=== PATIENT | female | born 1980 | race Caucasian/White ===

== ENCOUNTER → 2021-02-20 15:56 | Outpatient (CLI) | payer OTHER, SELFPAY ==
--- NOTE | ~2021-02-20 | XR_ITS ---
EXAMINATION: XR ankle RT min 3V DATE: 02/20/2021 16:12 INDICATION: Right ankle pain TECHNIQUE: Anteroposterior, oblique, mortise, and lateral views of the right ankle were obtained. COMPARISON: None. FINDINGS: Alignment is normal. No fracture. Joint spaces are well maintained. No ankle joint effusion. The so ft tissues are unremarkable. IMPRESSION: 1. Negative right ankle radiographs. Reviewed, dictated and finalized at location B. CTOR TRADE
== END ==
PROVIDERS: PCP Family Medicine; Visit Provider Family Medicine
DX: M25.579 Pain in unspecified ankle and joints of unspecified foot (principal)
CPT/HCPCS: 73610

== ENCOUNTER → 2021-05-11 16:30 | Outpatient (CLI) | payer OTHER, SELFPAY ==
--- NOTE | ~2021-05-11 | MR_ITS ---
EXAMINATION: MR ankle RT wo con DATE: 05/11/2021 17:15 INDICATION: Chronic pain and clicking at the right ankle. TECHNIQUE: Magnetic resonance imaging (MRI) of the right ankle was performed without intravenous cont rast. Sequences included sagittal, coronal, and axial proton-density weighted fast spin echo without and with fat saturation. COMPARISON: None. FINDINGS: Medial ankle ligaments: Deep and superficial deltoid ligaments as well as the spring ligament are normal. Lateral ankle ligaments: The anterior and posterior inferior tibiofibular ligaments are normal. The anterior talofibular, calc aneofibular and posterior talofibular ligaments are normal. Tendons: Achilles tendon is normal. The peroneus longus and brevis tendons are normal. The tibialis anterior a nd extensor hallucis longus and extensor digitorum longus tendons are normal. The tibialis posterior, flexor digitorum longus and flexor hallucis longus tendons are normal. Plantar fascia: Plantar aponeurosis is normal. Bones/other: Bone alignment is normal. Normal marrow signal throughout with no reactive edema, fracture or patholo gic marrow replacing process. Mild osteoarthritis at the right ankle with nonuniform mild partial-thi ckness cartilage loss with smooth chondral surface along the anterior to central aspect of the talar dome. Additional mild talonavicular osteoarthritis with partial thickness cartilage loss with smooth chondral surface at the inferior aspect of the joint space. Fluid: Physiologic amount fluid in the joint space. No tenosynovitis, bursitis or other abnormal fluid colle ctions. IMPRESSION: 1. Mild tibiotalar and talonavicular osteoarthritis. Reviewed, dictated and finalized at location A.
== END ==
PROVIDERS: Visit Provider Orthopaedic Surgery
DX: M19.071 Primary osteoarthritis, right ankle and foot (principal)
CPT/HCPCS: 73721

== ENCOUNTER → 2021-05-29 16:56 | Outpatient (CLI) | payer OTHER, SELFPAY ==
--- NOTE | ~2021-05-29 | XR_ITS ---
EXAM: XR sacrum coccyx min 2V HISTORY: Pain COMPARISON: CT abdomen and pelvis 03/28/2011. FINDINGS: No acute fracture or dislocation. Lateral deviation of the distal coccygeal elements, stab le since the prior. No significant degenerative changes. No lytic or blastic lesions. IMPRESSION: No acute osseous abnormality detected in the sacrum or coccyx. Reviewed, dictated and finalized at location K.
== END ==
PROVIDERS: PCP Family Medicine; Visit Provider Family Medicine
DX: M53.3 Sacrococcygeal disorders, not elsewhere classified (principal)
CPT/HCPCS: 72220

== ENCOUNTER → 2022-11-11 13:37 | Outpatient (CLI) | payer OTHER, SELFPAY ==
--- NOTE | ~2022-11-11 | MM_ITS ---
EXAMINATION: MM screening keshia BI w stella HISTORY: Screening mammogram TECHNIQUE: Craniocaudal and mediolateral oblique 3-D tomosynthesis images were obtained and synthetic 2-D images were generated. CAD analysis was submitted and interpreted. COMPARISON: No prior mammogram is available for comparison at this institution. BREAST PARENCHYMAL COMPOSITION: There are scattered areas of fibroglandular density. FINDINGS: Benign-appearing intramammary lymph node, upper outer quadrant of right breast. There is no evidence of suspicious mass, calcification, or architectural distortion to suggest malignancy in eit her breast. There has been no suspicious interval change. IMPRESSION: 1. No mammographic evidence of malignancy. 2. Recommend routine screening mammography in one year. BI-RADS Category 2: Benign finding(s). Reviewed, dictated and finalized at location A.
== END ==
PROVIDERS: PCP Physician Assistant; Visit Provider Physician Assistant
DX: Z12.31 Encounter for screening mammogram for malignant neoplasm of breast (principal)
CPT/HCPCS: 77063; 77067

== ENCOUNTER 2022-11-17 18:29 | Emergency (ER) | payer OTHER, SELFPAY ==
[2022-11-17 18:44] VITALS: BP 154/83; PULSE 68; RESP 18; TEMP 36.9; O2SAT 100
--- NOTE | 2022-11-17 19:02 | ED.NAVMDI ---
HPI - Nausea/Vomiting/Diarrhea General Chief complaint: Nausea/Vomiting/Diarrhea Stated complaint: diarrhea Time Seen by Provider: 11/17/22 18:45 Source: patient and RN notes reviewed Mode of arrival: ambulatory Limitations: no limitations History of Present Illness HPI Narrative: Patient presents today complaining of a 10 day history of diarrhea. Associated symptoms include intermittent dizziness and abdominal cramping. Prior to onset of diarrhea, patient had a 2 day history of nasal congestion and cough, which has since resolved. Patient states that since her diarrhea began she has lost 17 lb, likely due to only eating a small amount of bread 3 times per day when she takes her medications, and drinking Pedialyte, because if she eats more, this causes more diarrhea. At this time, while only eating the small amounts of bread, she only has 1 episode of diarrhea per day. No blood or mucus in the stool. Denies nausea or vomiting. Denies abdominal pain. Denies fever. States she is urinating at least 3 times per day. Patient states she has not tried any [id number] medication for her diarrhea as she has had adverse reactions to anti diarrheal medications in the past. Related Data Home Medications Medication Instructions Recorded Confirmed prednisone 50 mg tablet 50 mg PO DAILY 08/16/22 08/16/22 Allergies Allergy/AdvReac Type Severity Reaction Status Date / Time RENZO Inhibitors Allergy Severe unknown Verified 08/16/22 10:45 allantoin [From Orajel] Allergy Severe Rash Verified 08/16/22 10:45 benzalkonium chloride Allergy Severe Rash Verified 08/16/22 10:45 [From Orajel] benzocaine [From Orajel] Allergy Severe Rash Verified 08/16/22 10:45 carbamide peroxide Allergy Severe Rash Verified 08/16/22 10:45 [From Orajel] zinc chloride [From Orajel] Allergy Severe Rash Verified 08/16/22 10:45 azithromycin Allergy Mild unknown Verified 08/16/22 10:45 losartan Allergy Mild Unknown Verified 08/16/22 10:45 Penicillins Allergy Mild unkown Verified 08/16/22 10:45 povidone Allergy Mild gi upset Verified 08/16/22 10:45 tetracycline Allergy Mild unknown Verified 08/16/22 10:45 adhesive tape Allergy Unknown unknown Verified 08/16/22 10:45 ciprofloxacin Allergy Unknown unknown Verified 08/16/22 10:45 guaifenesin Allergy swelling Verified 08/16/22 10:45 and difficulty breathing cefamandole [From Mandol] AdvReac Severe Unknown Verified 08/16/22 10:45 clonidine AdvReac Severe Unknown Verified 08/16/22 10:45 lisinopril AdvReac Severe Unknown Verified 08/16/22 10:45 metoprolol [From Toprol XL] AdvReac Severe unknown Verified 08/16/22 10:45 nebivolol [From Bystolic] AdvReac Severe Unknown Verified 08/16/22 10:45 NSAIDS (Non-Steroidal AdvReac Severe Unknown Verified 08/16/22 10:45 Anti-Inflamma olmesartan [From Benicar] AdvReac Severe Unknown Verified 08/16/22 10:45 povidone-iodine AdvReac Severe Unknown Verified 08/16/22 10:45 pseudoephedrine AdvReac Severe Unknown Verified 08/16/22 10:45 [From Sudafed] triamterene AdvReac Severe Unknown Verified 08/16/22 10:45 mannitol AdvReac Mild gi upset Verified 08/16/22 10:45 sodium lauryl sulfate AdvReac Mild gi bleeding Verified 08/16/22 10:45 ERYTHROMYCINS Allergy Mild unknown Uncoded 08/16/22 10:45 CEFAZOLIN SODIUM Allergy Unknown unknown Uncoded 08/16/22 10:45 CIPROFLOXACIN HCL Allergy Unknown unknown Uncoded 08/16/22 10:45 MINOCYCLINE HCL Allergy Unknown unknown Uncoded 08/16/22 10:45 SKIN CLEANSER COMBINATION Allergy Unknown unknown Uncoded 08/16/22 10:45 NO.4 ONDANSETRON HCL AdvReac Unknown unknown Uncoded 08/16/22 10:45 Review of Systems Review of Systems: CONSTITUTIONAL: Denies body aches, fever, chills, or sweats.+ weight loss EYES: Denies visual changes, redness, or discharge. ENT: Denies rhinorrhea, congestion, sore throat, or otalgia. CARDIOVASCULAR: Denies chest pain, palpitations, or edema. RESPIRATORY: Denies cough or dyspnea. GASTROINTESTINAL: Denies abdomi
== END 2022-11-17 19:05 | disposition home or self-care (01) ==
PROVIDERS: Emergency Provider Nurse Practitioner; PCP Physician Assistant
DX: R19.7 Diarrhea, unspecified (principal); I10 Essential (primary) hypertension; E03.9 Hypothyroidism, unspecified
CPT/HCPCS: 99211; G0463

== ENCOUNTER 2022-12-17 07:15 | Emergency (ER) | payer OTHER, SELFPAY ==
[2022-12-17] VITALS (7 sets, daily range): BP systolic 140–177; BP diastolic 87–112; PULSE 60–76; RESP 16–18; TEMP 36.6–36.8; O2SAT 98–100
--- NOTE | ~2022-12-17 | CT_ITS ---
EXAMINATION: CT abdomen pelvis wo con DATE: 12/17/2022 09:43 INDICATION: Left-sided abdominal pain TECHNIQUE: Computed tomography (CT) of the abdomen and pelvis was performed without intravenous contr ast. Automated exposure control and iterative reconstruction technique were employed. The dose-length product was 930.34 mGy-cm. COMPARISON: 03/28/2011 FINDINGS: Calcified nodules in the bilateral lower lobes along with splenic calcification and a calcified gastr ohepatic lymph node, all consistent with old granulomatous disease. Heart size is normal. No pericard ial or pleural effusion. Diffuse hepatic steatosis. Gallbladder, pancreas, bilateral adrenal glands a nd left kidney are normal. 2 mm nonobstructing stone in the right kidney. No ureteral stones or hydro nephrosis. There are several diverticula along the descending and sigmoid colon. There is some wall t hickening of the colon centered along the descending colon where there is also some mild pericolonic stranding. This does not appear to be isolated nondisplaced specific diverticulum and would favor a m ild colitis over diverticulitis. Small bowel and appendix are normal. Bladder, anteverted uterus and bilateral adnexa are unremarkable. Trace amount of likely physiologic free fluid in the cul-de-sac. N o free intraperitoneal gas. No pathologically enlarged abdominal or pelvic lymphadenopathy. Minimal t o mild scattered degenerative skeletal changes. Likely benign 7 mm centrally lucent lesion in the lef t innominate bone with well-defined peripheral sclerotic rim which is without interval change since 2 012. IMPRESSION: 1. Mild colonic wall thickening and minimal surrounding inflammatory stranding along the descending c olon which appears more diffuse and would be expected for diverticulitis and favor a colitis which co uld be either infectious, inflammatory or ischemic in etiology. 2. 2 mm nonobstructing right renal stone. Reviewed, dictated and finalized at location A. IMPRESSION: 1. Mild colonic wall thickening and minimal surrounding inflammatory stranding along the descending colon which appears more diffuse and would be expected for diverticulitis and favor a colitis which could be either infectious, inflammat ory or ischemic in etiology. 2. 2 mm nonobstructing right renal stone.
[2022-12-17 07:38] LABS: Basophils Absolute Auto 0.1 K/mm3 (0.0-0.1); Basophils Percent Auto 0.5 % (0.2-1.2); Eosinophils Absolute Auto 0.3 K/mm3 (0-0.3); Eosinophils Percent Auto 2.9 % (0-4.4); Hematocrit 43.7 % (37.0-47.0); Hemoglobin 13.8 g/dL (12.0-15.0); Immature Granulocyte Absolute 0.04 K/mm3 (0.00-0.031); Immature Granulocyte Percent A 0.4 % (0-0.5); Lymphocytes Absolute Auto 1.63 K/mm3 (0.9-3.2); Lymphocytes Percent Auto 17.3 % (18.3-44.2); Mean Corpuscular HGB Conc 31.6 g/dl (32-36); Mean Corpuscular Hemoglobin 27.7 pg (26-34); Mean Corpuscular Volume 87.8 fl (80-100); Mean Platelet Volume 10.7 fl (7.4-10.4); Monocytes Absolute Auto 0.5 K/mm3 (0.1-0.6); Monocytes Percent Auto 5.7 % (2.6-8.5); Neutrophils Absolute Auto 6.9 K/mm3 (1.3-6.7); Neutrophils Percent Auto 73.2 % (45.5-73.1); Platelet Count Result 311 k/mm3 (150-375); Red Blood Count 4.98 M/mm3 (4.2-5.4); Red Cell Distribution Width 13.4 % (11.5-14.5); White Blood Count 9.4 K/mm3 (4.5-10.0)
[2022-12-17 07:49] LABS: Alanine Aminotransferase 29 U/L (6-35); Albumin Level 4.3 g/dL (3.5-5.1); Alkaline Phosphatase 84 U/L (38-126); Anion Gap 8 mmol/L (8-16); Aspartate Amino Transferase 31 U/L (14-36); Bilirubin,Total 0.7 mg/dL (0.2-1.3); Blood Urea Nitrogen 8 mg/dL (7-17); Calcium 8.8 mg/dL (8.4-10.2); Carbon Dioxide 25 mmol/L (22-30); Chloride 104 mmol/L (98-107); Estimated CRCL calculation 126 ml/min; Estimated Glomerular Filt Rate > 60; Glucose 116 mg/dL (65-110); Lipase 48 U/L (23-300); Potassium 3.7 mmol/L (3.4-5.0); Sodium 137 mmol/L (137-145)
[2022-12-17 09:02] LABS: Appearance Urine Cloudy (Clear); Bacteria Urine None Seen /hpf; Bilirubin Urine Negative (Negative); Blood Urine Negative (Negative); Color Urine Yellow (Yellow); Glucose Urine UA Negative (Negative); Ketones Urine Negative (Negative); Leukocyte Esterase Ur Negative LEU/UL (Negative); Mucus Urine Present /lpf; Nitrate Urine Negative (Negative); Non Pathogenic Casts 0-2; Protein Urine Negative (Negative); Specific Grav Ur 1.021 (1.001-1.035); Squamous Epithelial Cell Urine Few /hpf (Few); Urobilinogen Urine 0.2 mg/dL (<2.0); WBC Urine 0-5 /hpf; pH Urine 5.5 (5.0-9.0)
[2022-12-17 09:04] LABS: Add Urine Microscopic? YES
--- NOTE | 2022-12-17 11:18 | PC.NURSE ---
No change waiting on dispo & POC
--- NOTE | 2022-12-17 12:17 | ED.ABDPAIN ---
HPI - Abdominal Pain General Chief Complaint: Abdominal Pain Stated Complaint: abd pain, bloody stools Time Seen by Provider: 12/17/22 08:08 History of Present Illness HPI narrative: Patient is a 42-year-old female who presents ER with abdominal cramping and bloody stools. Patient reports questionable history of inflammatory bowel disease. She had 1 loose stool with blood mixed in with it this morning. No fevers or chills or sweats. No known sick contacts. No recent antibiotic usage. She is on no blood thinners. Patient does have images of the stool which does show faint pink mixed with the stool. It is not large-volume blood. Related Data Home Medications Medication Instructions Recorded Confirmed prednisone 50 mg tablet 50 mg PO DAILY 08/16/22 11/18/22 Allergies Allergy/AdvReac Type Severity Reaction Status Date / Time RENZO Inhibitors Allergy Severe unknown Verified 11/18/22 16:40 allantoin [From Orajel] Allergy Severe Rash Verified 11/18/22 16:40 benzalkonium chloride Allergy Severe Rash Verified 11/18/22 16:40 [From Orajel] benzocaine [From Orajel] Allergy Severe Rash Verified 11/18/22 16:40 carbamide peroxide Allergy Severe Rash Verified 11/18/22 16:40 [From Orajel] zinc chloride [From Orajel] Allergy Severe Rash Verified 11/18/22 16:40 azithromycin Allergy Mild unknown Verified 11/18/22 16:40 losartan Allergy Mild Unknown Verified 11/18/22 16:40 Penicillins Allergy Mild unkown Verified 11/18/22 16:40 povidone Allergy Mild gi upset Verified 11/18/22 16:40 tetracycline Allergy Mild unknown Verified 11/18/22 16:40 adhesive tape Allergy Unknown unknown Verified 11/18/22 16:40 ciprofloxacin Allergy Unknown unknown Verified 11/18/22 16:40 guaifenesin Allergy swelling Verified 11/18/22 16:40 and difficulty breathing cefamandole [From Mandol] AdvReac Severe Unknown Verified 11/18/22 16:40 clonidine AdvReac Severe Unknown Verified 11/18/22 16:40 lisinopril AdvReac Severe Unknown Verified 11/18/22 16:40 metoprolol [From Toprol XL] AdvReac Severe unknown Verified 11/18/22 16:40 nebivolol [From Bystolic] AdvReac Severe Unknown Verified 11/18/22 16:40 NSAIDS (Non-Steroidal AdvReac Severe Unknown Verified 11/18/22 16:40 Anti-Inflamma olmesartan [From Benicar] AdvReac Severe Unknown Verified 11/18/22 16:40 povidone-iodine AdvReac Severe Unknown Verified 11/18/22 16:40 pseudoephedrine AdvReac Severe Unknown Verified 11/18/22 16:40 [From Sudafed] triamterene AdvReac Severe Unknown Verified 11/18/22 16:40 mannitol AdvReac Mild gi upset Verified 11/18/22 16:40 sodium lauryl sulfate AdvReac Mild gi bleeding Verified 11/18/22 16:40 ERYTHROMYCINS Allergy Mild unknown Uncoded 11/18/22 16:40 CEFAZOLIN SODIUM Allergy Unknown unknown Uncoded 11/18/22 16:40 CIPROFLOXACIN HCL Allergy Unknown unknown Uncoded 11/18/22 16:40 MINOCYCLINE HCL Allergy Unknown unknown Uncoded 11/18/22 16:40 SKIN CLEANSER COMBINATION Allergy Unknown unknown Uncoded 11/18/22 16:40 NO.4 ONDANSETRON HCL AdvReac Unknown unknown Uncoded 11/18/22 16:40 Review of Systems Review of Systems: All systems reviewed & are unremarkable except as noted in HPI and below Constitutional: Constitutional: Denies chills, Denies fatigue and Denies fever(s) ENT: Denies nasal congestion and Denies sore throat Cardiovascular: Cardiovascular: Denies chest pain, Denies rapid heart rate and Denies radiating jaw, neck or arm pain Respiratory: Respiratory: Denies cough and Denies dyspnea Gastrointestinal: Gastrointestinal: Reports abdominal pain, Reports diarrhea, Denies nausea and Denies vomiting Comments: Blood in stool Genitourinary: Genitourinary: Denies nocturia, Denies dysuria and Denies flank pain PMFSH Past Medical History Medical History Abdominal migraine Abdominal pain Ankle joint clicking Arthritis Asthma Asthma Coccyodynia Coughing Crohn's disease, unspecified, witho
== END 2022-12-17 12:42 | disposition home or self-care (01) ==
PROVIDERS: Emergency Provider Emergency Medicine; PCP Physician Assistant
DX: K52.9 Noninfective gastroenteritis and colitis, unspecified (principal); J45.909 Unspecified asthma, uncomplicated; I10 Essential (primary) hypertension; K50.90 Crohn's disease, unspecified, without complications; E03.9 Hypothyroidism, unspecified; E66.9 Obesity, unspecified; M19.90 Unspecified osteoarthritis, unspecified site; Z68.35 Body mass index [BMI] 35.0-35.9, adult; N20.0 Calculus of kidney
CPT/HCPCS: 36415; 74176; 80053; 81001; 81025; 83690; 85025; 99284

== ENCOUNTER 2023-02-11 15:42 | Emergency (ER) | payer OTHER, SELFPAY ==
--- NOTE | ~2023-02-11 | XR_ITS ---
EXAMINATION: XR chest 2V 02/11/2023 16:13 INDICATION: Cough. Covid infection. PROCEDURE: 2 view chest COMPARISON: 02/26/2010 FINDINGS: The lungs are clear. The cardiomediastinal silhouette is within normal limits. There are no pleural effusions. There is no pneumothorax suspected. IMPRESSION: 1: NO ACUTE CARDIOPULMONARY DISEASE. Reviewed, dictated and finalized at location L. E PACKING HEADER
[2023-02-11 15:55] VITALS: BP 125/83; PULSE 78; RESP 16; TEMP 36.4; O2SAT 100
--- NOTE | 2023-02-11 16:29 | ED.URI ---
HPI - URI/Sore Throat General Chief Complaint: Asthma Stated Complaint: +COVID home test 1week, chest hurts Time Seen by Provider: 02/11/23 16:29 Source: patient Mode of arrival: ambulatory Limitations: no limitations History of Present Illness HPI Narrative: 42-year-old female presents with complaint of cough, chest congestion for 1 week. Shortness of breath with exertion past 2 days. History of asthma. Does have a p.r.n. order for prednisone but has not started this medication. Took down some 3 days ago to treat cough but not since then. Reports allergy to Mucinex. Afebrile. Patient speaking in full sentences, no respiratory distress noted. Tested positive for COVID 1 week ago. All systems reviewed and negative except as noted above. Related Data Home Medications Medication Instructions Recorded Confirmed Advair Diskus 02/11/23 02/11/23 prednisone 50 mg tablet 50 mg PO DAILY 02/11/23 02/11/23 Allergies Allergy/AdvReac Type Severity Reaction Status Date / Time RENZO Inhibitors Allergy Severe unknown Verified 02/11/23 16:35 allantoin [From Orajel] Allergy Severe Rash Verified 02/11/23 16:35 benzalkonium chloride Allergy Severe Rash Verified 02/11/23 16:35 [From Orajel] benzocaine [From Orajel] Allergy Severe Rash Verified 02/11/23 16:35 carbamide peroxide Allergy Severe Rash Verified 02/11/23 16:35 [From Orajel] zinc chloride [From Orajel] Allergy Severe Rash Verified 02/11/23 16:35 azithromycin Allergy Mild unknown Verified 02/11/23 16:35 losartan Allergy Mild Unknown Verified 02/11/23 16:35 Penicillins Allergy Mild unkown Verified 02/11/23 16:35 povidone Allergy Mild gi upset Verified 02/11/23 16:35 tetracycline Allergy Mild unknown Verified 02/11/23 16:35 adhesive tape Allergy Unknown unknown Verified 02/11/23 16:35 ciprofloxacin Allergy Unknown unknown Verified 02/11/23 16:35 guaifenesin Allergy swelling Verified 02/11/23 16:35 and difficulty breathing cefamandole [From Mandol] AdvReac Severe Unknown Verified 02/11/23 16:35 clonidine AdvReac Severe Unknown Verified 02/11/23 16:35 lisinopril AdvReac Severe Unknown Verified 02/11/23 16:35 metoprolol [From Toprol XL] AdvReac Severe unknown Verified 02/11/23 16:35 nebivolol [From Bystolic] AdvReac Severe Unknown Verified 02/11/23 16:35 NSAIDS (Non-Steroidal AdvReac Severe Unknown Verified 02/11/23 16:35 Anti-Inflamma olmesartan [From Benicar] AdvReac Severe Unknown Verified 02/11/23 16:35 povidone-iodine AdvReac Severe Unknown Verified 02/11/23 16:35 pseudoephedrine AdvReac Severe Unknown Verified 02/11/23 16:35 [From Sudafed] triamterene AdvReac Severe Unknown Verified 02/11/23 16:35 mannitol AdvReac Mild gi upset Verified 02/11/23 16:35 sodium lauryl sulfate AdvReac Mild gi bleeding Verified 02/11/23 16:35 flu vaccine Allergy Intermediate Itching Uncoded 02/11/23 16:35 ERYTHROMYCINS Allergy Mild unknown Uncoded 02/11/23 16:35 CEFAZOLIN SODIUM Allergy Unknown unknown Uncoded 02/11/23 16:35 CIPROFLOXACIN HCL Allergy Unknown unknown Uncoded 02/11/23 16:35 MINOCYCLINE HCL Allergy Unknown unknown Uncoded 02/11/23 16:35 SKIN CLEANSER COMBINATION Allergy Unknown unknown Uncoded 02/11/23 16:35 NO.4 ONDANSETRON HCL AdvReac Unknown unknown Uncoded 02/11/23 16:35 Review of Systems Review of Systems: CONSTITUTIONAL: Denies fever, chills, or sweats. Reports fatigue. EYES: Denies visual changes, redness, or discharge. ENT: Reports rhinorrhea, congestion, sore throat. Denies otalgia. CARDIOVASCULAR: Denies chest pain, palpitations, or edema. RESPIRATORY: reports cough and dyspnea with exertion. GASTROINTESTINAL: Denies abdominal pain, nausea, vomiting, or diarrhea. GENITOURINARY: Denies dysuria or hematuria. SKIN: Denies rash or itching. MUSCULOSKELETAL: Denies back pain, joint pain, or myalgia. NEUROLOGIC: Denies headache, numbness, or weakness. PSYCHIATRIC: Denies anxiety or depression. All other systems reviewed are negative, exce
== END 2023-02-11 16:50 | disposition home or self-care (01) ==
PROVIDERS: Emergency Provider Nurse Practitioner Family; PCP Family Medicine
DX: U07.1 COVID-19 (principal); J45.909 Unspecified asthma, uncomplicated; I10 Essential (primary) hypertension; E03.9 Hypothyroidism, unspecified; K50.90 Crohn's disease, unspecified, without complications; E66.9 Obesity, unspecified; Z68.34 Body mass index [BMI] 34.0-34.9, adult
CPT/HCPCS: 71046; 99213; G0463

== ENCOUNTER → 2023-03-14 15:19 | Outpatient (CLI) | payer BC, SELFPAY ==
--- NOTE | ~2023-03-14 | XR_ITS ---
EXAMINATION: XR hip BI 2V w AP pelvis DATE: 03/14/2023 15:49 INDICATION: Right hip pain. TECHNIQUE: An anteroposterior view of the pelvis and 2 views of each hip were obtained. COMPARISON: None. FINDINGS: Bone alignment is normal. No fracture. There is mild osteoarthritis of the hips. IMPRESSION: 1. Mild osteoarthritis of the hips. Reviewed, dictated and finalized at location E. K RATING
--- NOTE | ~2023-03-14 | XR_ITS ---
EXAMINATION: XR knee RT min 4V DATE: 03/14/2023 15:49 INDICATION: Right knee pain. Right hip pain. TECHNIQUE: 4 views of right knee were obtained. COMPARISON: None. FINDINGS: Bone alignment is normal. No fracture. Joint spaces are normal. No knee joint effusion. IMPRESSION: 1. Normal right knee. Reviewed, dictated and finalized at location E. EN SEWER IMPRESSION: 1. Normal right knee.
--- NOTE | ~2023-03-14 | XR_ITS ---
XR knee LT min 4V 03/14/2023 15:49 Indication: Left knee pain Procedure: 4 views left knee Comparison: No prior studies for comparison. Findings: There is anatomic alignment. No fracture, subluxation or dislocation. No significant degene rative change. No joint effusion. Impression: 1: No significant bone or joint abnormality. Reviewed, dictated and finalized at location B. OMICS LECTURER Impression: 1: No significant bone or joint abnormality.
== END ==
PROVIDERS: PCP Family Medicine; Visit Provider Family Medicine
DX: M25.561 Pain in right knee (principal); M25.562 Pain in left knee; M25.661 Stiffness of right knee, not elsewhere classified; M25.662 Stiffness of left knee, not elsewhere classified; M16.0 Bilateral primary osteoarthritis of hip
CPT/HCPCS: 73521; 73564

== ENCOUNTER 2023-10-01 16:02 | Outpatient (CLI) | payer BC, SELFPAY ==
--- NOTE | ~2023-10-01 | MR_ITS ---
EXAMINATION: MR shoulder LT wo con DATE: 10/01/2023 16:45 INDICATION: Left shoulder stiffness. Generalized left shoulder pain and limited range of motion. TECHNIQUE: Magnetic resonance imaging (MRI) of the left shoulder was performed without intravenous co ntrast. Sequences included axial PD-weighted FS FSE, coronal oblique PD-weighted FS FSE, coronal obli que T2-weighted FS FSE, sagittal PD-weighted FS FSE, and sagittal T1-weighted SE. COMPARISON: None. FINDINGS: Coracoacromial arch: The acromion undersurface is flat in morphology (type I). The coracoacromial ligament is normal. Acro mioclavicular joint is normal. Rotator cuff: The supraspinatus, infraspinatus and teres minor tendons are normal. Moderate tendinopathy at the cep halad aspect of the distal subscapularis tendon. There is no discrete fluid signal intensity tear def ect appreciated however there is disorganized appearance to tissue along the cephalad margin of the l memo tuberosity, unclear whether this represents a small partial tear of the cephalad margin of the subscapularis tendon and/or partial tear of the lateral aspect of the biceps ashli sling. Normal rot ator cuff muscle bulk and signal. Biceps tendon, glenoid labrum and glenohumeral cartilage: Long head of the biceps tendon is normal. Glenoid labrum is normal. Glenohumeral cartilage is normal. Fluid: Physiologic amount of fluid in the glenohumeral joint and biceps tendon sheath. No loose osteochondr al bodies. No abnormal fluid in the subacromial/subdeltoid bursa to suggest bursitis. Bones: Normal marrow signal with no edema, fracture or abnormal marrow replacing process. IMPRESSION: 1. Moderate tendinopathy along the cephalad half of the subscapularis tendon with partial tear of the cephalad margin of the tendon and/or lateral aspects the biceps ashli sling. Reviewed, dictated and finalized at location A. IMPRESSION: 1. Moderate tendinopathy along the cephalad half of the subscapularis tendon wi th partial tear of the cephalad margin of the tendon and/or lateral aspects the biceps ashli sling.
== END 2023-10-01 16:03 ==
PROVIDERS: PCP Family Medicine; Visit Provider Family Medicine
DX: M25.512 Pain in left shoulder (principal); M25.612 Stiffness of left shoulder, not elsewhere classified
CPT/HCPCS: 73221

== ENCOUNTER 2023-10-30 16:48 | Outpatient (CLI) | payer BC, SELFPAY ==
--- NOTE | ~2023-10-30 | XR_ITS ---
Left Shoulder Technique: AP and scapular Y views were obtained. Clinical History: Pain Findings: No fracture or dislocation is seen. Osseous alignment is anatomic. The glenohumeral and acr omioclavicular joint spaces are preserved. Soft tissues are unremarkable. Impression: Unremarkable left shoulder radiographs. Reviewed, dictated and finalized at [facility]. Impression: Unremarkable left shoulder radiographs.
== END 2023-10-30 16:49 | disposition home or self-care (01) ==
PROVIDERS: PCP Family Medicine; Visit Provider Orthopaedic Surgery
DX: M25.512 Pain in left shoulder (principal)
CPT/HCPCS: 73030

== ENCOUNTER 2023-11-17 16:54 | Outpatient (CLI) | payer BC, SELFPAY ==
--- NOTE | ~2023-11-17 | XR_ITS ---
Lumbosacral Spine: AP and lateral views Clinical History: Pain Findings: The normal lordotic curve is maintained. The vertebral bodies and posterior elements are i ntact. There is mild degenerative narrowing at L2-L3. Mild facet joint degenerative changes are prese nt. The sacroiliac joints are normally outlined. Impression: Mild degenerative spondylosis. Reviewed, dictated and finalized at [facility]. Impression: Mild degenerative spondylosis.
--- NOTE | ~2023-11-17 | XR_ITS ---
XR sacroiliac joints min 3V Ordering provider: Wally Santillan History: . MULTIPLE JOINT PAIN . Comparison: None. FINDINGS: BONES: No acute fracture or dislocation. JOINTS: The bilateral sacroiliac joint spaces appear well maintained. No bony fusion of the sacroilia c joints or bony erosions. SOFT TISSUES: Unremarkable. IMPRESSION: NO ACUTE OSSEOUS ABNORMALITY. NORMAL SACROILIAC JOINTS. Reviewed, dictated and finalized at location A.
== END 2023-11-17 16:55 | disposition home or self-care (01) ==
PROVIDERS: PCP Family Medicine
DX: R53.81 Other malaise (principal); M47.896 Other spondylosis, lumbar region
CPT/HCPCS: 72100; 72202

== ENCOUNTER 2024-01-30 14:01 | Outpatient (CLI) | payer BC, SELFPAY ==
--- NOTE | ~2024-01-30 | US_ITS ---
EXAMINATION: US thyroid DATE: 01/30/2024 14:21 INDICATION: Thyroid nodule. Endocrine disorder. TECHNIQUE: Multiple ultrasound images of the thyroid were obtained. COMPARISON: Ultrasound 09/22/2013 FINDINGS: The right thyroid lobe measures 4.3 x 1.9 x 1.9 cm. The left thyroid lobe measures 4.7 x 1.6 x 1.7 c m. In the right thyroid lobe, there is a 15 mm almost entirely cystic nodule (TI-RADS TR1). In the r ight thyroid lobe, there is an 11 mm solid, isoechoic, wider than tall nodule with ill-defined margin without echogenic foci (TR3). In the left thyroid lobe, there is a 10 mm mixed cystic and solid, iso echoic, wider than tall nodule with ill-defined margin without echogenic foci (TR2). In the left thyr oid lobe, there is a 9 mm coarse calcification. IMPRESSION: 1. Small thyroid nodules, likely not clinically significant. No follow-up is needed. Reviewed, dictated and finalized at location A. ELING REPAIR ACCOUNTANT IMPRESSION: 1. Small thyroid nodules, likely not clinically significant. No follow-up is ne eded.
== END 2024-01-30 14:02 | disposition home or self-care (01) ==
PROVIDERS: PCP Family Medicine; Visit Provider Family Medicine
DX: E04.2 Nontoxic multinodular goiter (principal)
CPT/HCPCS: 76536

== ENCOUNTER 2024-10-19 15:29 | Outpatient (CLI) | payer BC, SELFPAY ==
--- OUTSIDE RECORDS SUMMARY | 2008-12-12 05:45 | XMS_ITS | Continuity of Care Document ---
Author Organization [facility] Address [address] [place] [address] [facility] [address] [place] [address] Phone Care Team Providers Care Manager Epic Name Role Phone Anjum Lam Unavailable Unavailable Procedures Procedure Date Office/outpatient Visit, [facility] Advance Directives Directive Yes / No Effective Date File Name No Information Encounters Encounter Description Practice Location Reason(s) For Visit Diagnoses Date Provider Providers Copied on Encounter Office/outpat ient Visit, [facility], [address] [place] [address] [address], [place], [place], [id number], [place] tel:[phone] [facility] No Information 6-200 9 Kimmili Anjum. [address] [facility] [address], [place], [address], [place]. tel:[phone] Family History Family Member Type Diagnosis Age At Onset No Information Payers Payer name Insurance type Covered republican ID Authoriza tion(s) No Information Social History [...]
--- OUTSIDE RECORDS SUMMARY | 2024-10-19 15:31 | XMS_ITS | Encounter Summary ---
Author Organization [facility] Address [address] [place] [address] Phone Care Team Providers Care Assistant Curator Name Role Phone Marizol Castelan MD Primary Care Provider [phone] Tej Woodson Primary Care Provider + Tania Carroll DO Primary Care Provider [phone] Encounter Details Date Type Department Care Team (Late st Contact Info) Description 02/20/2021 Orders Only [facility] Scanning, Provider Social History Tobacco Use Types Packs/Day Years Used Date Smoking Tobacco: Never Smokeless Tobacco: Never Comments Unknown Sex and Gender Information Value Date Recorded Sex Assigned at Not on file Legal Sex Female 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 Gender Identity Not on file Sexual Orientation Not on file documented as of this encounter Plan of Treatment Not on file documented as of this encounter Procedures Procedure Name Priority Date/Time Associated Diagnosis Comments SCAN - RADIOLOGY/IMAGING 02/20/2021 documented in this encounter Results * SCAN - RADIOLOGY/IMAGING (02/20/2021) Anatomical Region Laterality Modality Other us Provider Scanning Final Result documented in this encounter Visit Diagnoses Not on filedocumented in this encounter Care Teams Assistant Curator Relationship Specialty Start Date End Date Marizol Castelan MD [address] [place] [address] PCP - General 12/11/16 09/09/22 Tej Woodson PA [address] [place] [address] PCP - General Physician Retail Loan Officer 09/10/22 03/16/23 Tania Carroll DO [address] [place] [address] [address] [place] [address] PCP - General Family Medicine 03/17/23 documented as of this encounter
--- OUTSIDE RECORDS SUMMARY | 2024-10-19 15:31 | XMS_ITS | Encounter Summary ---
Author Organization [facility] Address [address] [place] [address] Phone Care Team Providers Care Personnel Coordinator Name Role Phone Marizol Castelan MD Primary Care Provider [phone] Tej Woodson Primary Care Provider + Tania Carroll DO Primary Care Provider [phone]- [phone] Encounter Details Date Type Department Care Team (Late st Contact Info) Description 05/11/2021 Orders Only [facility] Scanning, Provider Social History Tobacco Use Types Packs/Day Years Used Date Smoking Tobacco: Never Smokeless Tobacco: Never Comments Unknown Sex and Gender Information Value Date Recorded Sex Assigned at Not on file 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 Gender Identity Not on file Sexual Orientation Not on file documented as of this encounter Plan of Treatment Not on file documented as of this encounter Procedures Procedure Name Priority Date/Time Associated Diagnosis Comments SCAN - RADIOLOGY/IMAGING 05/11/2021 documented in this encounter Results * SCAN - RADIOLOGY/IMAGING (05/11/2021) Anatomical Region Laterality Modality Other us Provider Scanning Final Result documented in this encounter Visit Diagnoses Not on filedocumented in this encounter Care Teams Personnel Coordinator Relationship Specialty Start Date End Date Marizol Castelan MD [address] [place] [address] PCP - General 12/11/16 09/09/22 Tej Woodson PA [address] [place] [address] PCP - General Physician Manager Intelligence 09/10/22 03/16/23 Tania Carroll DO [address] [place] [address] [address] [place] [address] PCP - General Family Medicine 03/17/23 documented as of this encounter
--- OUTSIDE RECORDS SUMMARY | 2024-10-19 15:31 | XMS_ITS | Encounter Summary ---
Author Organization [facility] Address [address] [place] [address] Phone Care Team Providers Care Car Whacker Name Role Phone Marizol Castelan MD Primary Care Provider [phone] Tej Woodson Primary Care Provider + Tania Carroll DO Primary Care Provider [phone] Encounter Details Date Type Department Care Team (Late st Contact Info) Description 05/29/2021 Orders Only [facility] Scanning, Provider Social History Tobacco Use Types Packs/Day Years Used Date Smoking Tobacco: Never Smokeless Tobacco: Never Comments Unknown Sex and Gender Information Value Date Recorded Sex Assigned at Not on file 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 ENGINEERING SPECIALIST Gender Identity Not on file Sexual Orientation Not on file documented as of this encounter Plan of Treatment Not on file documented as of this encounter Procedures Procedure Name Priority Date/Time Associated Diagnosis Comments SCAN - RADIOLOGY/IMAGING 05/29/2021 documented in this encounter Results * SCAN - RADIOLOGY/IMAGING (05/29/2021) Anatomical Region Laterality Modality Other us Provider Scanning Final Result documented in this encounter Visit Diagnoses Not on filedocumented in this encounter Care Teams Car Whacker Relationship Specialty Start Date End Date Marizol Castelan MD [address] [place] [address] PCP - General 12/11/16 09/09/22 Tej Woodson PA [address] [place] [address] PCP - General Physician Silk Screen Printer Machine 09/10/22 03/16/23 Tania Carroll DO [address] [place] [address] [address] [place] [address] PCP - General Family Medicine 03/17/23 documented as of this encounter
--- OUTSIDE RECORDS SUMMARY | 2024-10-19 15:32 | XMS_ITS | Encounter Summary ---
Author Organization [facility] Address [address] [place] [address] Phone Care Team Providers Care Electromechanical Assembler Name Role Phone Tej Woodson Primary Care Provider + Tania Carroll DO Primary Care Provider [phone] Encounter Details Date Type Department Care Team (Late st Contact Info) Description 12/17/2022 Orders Only [facility] Scanning, Provider Social History Tobacco Use Types Packs/Day Years Used Date Smoking Tobacco: Never Smokeless Tobacco: Never Comments Unknown Sex and Gender Information Value Date Recorded Sex Assigned at Not on file 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 Gender Identity Not on file Sexual Orientation Not on file documented as of this encounter Plan of Treatment Not on file documented as of this encounter Procedures Procedure Name Priority Date/Time Associated Diagnosis Comments SCAN - RADIOLOGY/IMAGING 12/17/2022 documented in this encounter Results * SCAN - RADIOLOGY/IMAGING (12/17/2022) Anatomical Region Laterality Modality Other us Provider Scanning Final Result documented in this encounter Visit Diagnoses Not on filedocumented in this encounter Care Teams Electromechanical Assembler Relationship Specialty Start Date End Date Tej Woodson PA [address] [place] [address] PCP - General Physician Construction Field Engineer 09/10/22 03/16/23 Tania Carroll DO [address] [place] [address] [address] [place] [address] PCP - General Family Medicine 03/17/23 documented as of this encounter
--- OUTSIDE RECORDS SUMMARY | 2024-10-19 15:32 | XMS_ITS | Encounter Summary ---
Author Organization [facility] Address [address] [place] [address] Phone Care Team Providers Care Horse And Wagon Driver Name Role Phone Tania Carroll DO Primary Care Provider [phone] Encounter Details Date Type Department Care Team (Late st Contact Info) Description 10/29/2023 Orders Only [facility] Scanning, Provider Social History Tobacco Use Types Packs/Day Years Used Date Smoking Tobacco: Never Smokeless Tobacco: Never Personal Safety Answer Date Recorded Have you ever been in or are you currently in a harmful physical or emotional relationship or is someone making you feel afraid or unsafe? Denies 07/30/2023 Comments No Sex and Gender Information Value Date Recorded Sex Assigned at Not on file Legal Sex Female 3:38 AM GARMENT INSPECTOR Gender Identity Not on file Sexual Orientation Not on file documented as of this encounter Plan of Treatment Not on file documented as of this encounter Procedures Procedure Name Priority Date/Time Associated Diagnosis Comments SCAN - LABS 10/29/2023 documented in this encounter Results * SCAN - LABS (10/29/2023) us Provider Scanning Final Result documented in this encounter Visit Diagnoses Not on filedocumented in this encounter Care Teams Horse And Wagon Driver Relationship Specialty Start Date End Date Tania Carroll DO [address] [place] [address] [address] [place] [address] PCP - General Family Medicine 03/17/23 documented as of this encounter
--- OUTSIDE RECORDS SUMMARY | 2024-10-19 15:32 | XMS_ITS | Encounter Summary ---
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 Gender Identity Not on file Sexual Orientation Not on file documented as of this encounter Plan of Treatment Not on file documented as of this encounter Procedures Procedure Name Priority Date/Time Associated Diagnosis Comments SCAN - RADIOLOGY/IMAGING 10/01/2023 documented in this encounter Results * SCAN - RADIOLOGY/IMAGING (10/01/2023) Anatomical Region Laterality Modality Other us Provider Scanning Final Result documented in this encounter Visit Diagnoses Not on filedocumented in this encounter Care Teams Pnp Relationship Specialty Start Date End Date Tania Carroll DO [address] [place] [address] [address] [place] [address] PCP - General Family Medicine 03/17/23 documented as of this encounter
--- OUTSIDE RECORDS SUMMARY | 2024-10-19 15:32 | XMS_ITS | Encounter Summary ---
Author Organization [facility] Address [address] [place] [address] Phone Care Team Providers Care Lead Database Administrator Name Role Phone Tej Woodson Primary Care Provider + Tania Carroll DO Primary Care Provider [phone] Encounter Details Date Type Department Care Team (Late st Contact Info) Description 03/14/2023 Orders Only [facility] Scanning, Provider Social History Tobacco Use Types Packs/Day Years Used Date Smoking Tobacco: Never Smokeless Tobacco: Never Personal Safety Answer Date Recorded Getting School Help Needed Not on file 02/05 Comments Unknown Sex and Gender Information Value Date Recorded Sex Assigned at Not on file Legal Sex Female 3:38 AM MINING PROFESSIONALS Gender Identity Not on file Sexual Orientation Not on file documented as of this encounter Plan of Treatment Not on file documented as of this encounter Procedures Procedure Name Priority Date/Time Associated Diagnosis Comments SCAN - RADIOLOGY/IMAGING 03/14/2023 documented in this encounter Results * SCAN - RADIOLOGY/IMAGING (03/14/2023) Anatomical Region Laterality Modality Other us Provider Scanning Edited Result - Final documented in this encounter Visit Diagnoses Not on filedocumented in this encounter Care Teams Lead Database Administrator Relationship Specialty Start Date End Date Tej Woodson PA [address] [place] [address] PCP - General Physician Door Clamper 09/10/22 03/16/23 Tania Carroll DO [address] [place] [address] [place] [address] PCP - General Family Medicine 03/17/23 documented as of this encounter
--- OUTSIDE RECORDS SUMMARY | 2024-10-19 15:32 | XMS_ITS | Clinical Summary ---
Author Organization [facility] Address [address] [place] [address] Care Team Providers Care Hand Roller Engraver Name Role Phone Tania Carroll DO Primary Care Provider [phone] Allergies Active Allergy Reactions Criticality Noted Date Comments Kunal Inhibitors Unknown Low 05/29/2011 Adhesive Tape-Silicones Unknown Low 02/22/2008 Ampicillin Unknown Low 02/22/2008 Benzocaine Rash Medium 02/21/2023 Tachycardia Ciprofloxacin Unknown Medium 05/29/2011 Erythromycin Unknown Medium 02/22/2008 Guaifenesin Unknown Medium 06/29/2014 Influenza Virus Vaccines Other (See comments) Low 07/30/2023 Redness, swelling, itching, burning Losartan Angioedema High 02/21/2023 Minocycline Unknown Medium 02/22/2008 Nonoxynol-9 Unknown Medium 10/02/2011 Penicillins Unknown Medium 10/02/2011 Povidone-Iodine Other (See comments) Low 07/30/2023 This is not the topical iodine. Pt reports it is an inactive ingredient in some medications and has been involved in causing GI bleed. Azithromycin Unknown Medium 02/22/2008 Medications predniSONE (DELTASONE) 50 mg tablet 08/23/19 23 Active albuterol HFA (PROVENTIL HFA,VENTOLIN HFA,PROAIR HFA) 90 mcg/actuation inhaler 2 puffs 03/05/19 24 Active amLODIPine (NORVASC) 2.5 mg tabletIndication s:Essential hypertension TAKE TWO (2) TABS BY MOUTH EVERY MORNING AND 1 TAB BY MOUTH IN THE PM. ZYDUS BRAND 90 tablet 5 06/26/19 25 Active labetaloL (NORMODYNE,TRAND ATE) 100 mg tabletIndication s:Essential hypertension TAKE 1 TABLET BY MOUTH THREE TIMES A DAY 90 tablet 10/12/19 25 Active labetaloL (NORMODYNE,TRAND ATE) 100 mg tabletIndication s:Essential hypertension TAKE 1 TABLET BY MOUTH THREE TIMES A DAY 90 tablet 09/14/19 25 025 Discontinued Active Problems Problem Noted Date Diagnosed Date Allergy to influenza vaccine 07/02/2023 Restless leg syndrome 03/26/2023 Migraine 03/26/2023 Rectal bleeding 02/21/2023 Abdominal pain 02/21/2023 Orthostatic dizziness 11/26/2021 Acquired hypothyroidism 11/19/2021 Sinus tachycardia 04/17/2021 ADHIKARI (dyspnea on exertion) 04/17/2021 Palpitations 04/17/2021 History of COVID-19 04/17/2021 POTS (postural orthostatic tachycardia syndrome) 04/17/2021 Medication intolerance 04/17/2021 Essential hypertension 11/05/2017 Assessment & Plan (11/05/2017 2:07 PM CDT): Blood pressure is under good control. Will continue on current medical regimen except will take evening dose of labetalol little bit early since she has a slight evening rise in the blood pressure. Continue to watch sodium intake and stay active. Encounters Date Type Department Care Team Description 09/08/2024 2:30 PM CDT Office Visit [facility] Medicine Gastroenterology [address] [facility] [address] [place] [address] Kamille Orellana MD Dietary counseling (Primary Dx) 08/25/2024 2:45 PM CDT Office Visit [facility] Medicine Allergy and Immunology [address] [facility] [address] [place] [address] Barb James MD Adverse food reaction, subsequent encounter (Primary Dx); Food intolerance from Last 3 Months Surgical History Surgery Date Site/Laterality Comments NO PAST SURGERIES Medical History Medical History Date Comments Hypertension Asthma Arrhythmia Diverticulosis GERD (gastroesophageal reflux disease) Histoplasmosis Colitis Family History Medical History Relation Name Comments Diabetes type II Brother Diabetes Father Diabetes Mellit us - (Added by Conv) Diabetes type II Father Hypertension Father Hypertension - (Added by TW Conv) Neuropathy Father Family history of neuropathy - (Added by TW Conv) Dementia Father's Brother Dementia - (Added by TW Conv) Atrial fibrillation Maternal Grandfather Family history of atrial fibrillation - (Added by TW Conv) Diabetes Maternal Grandfather Heart failure Maternal Grandfather Family history of CHF (congestive heart failure) - (Added by TW Conv) Hypertension Maternal Grandfather Hyperte nsion - (Added by TW Conv) pacemaker Maternal Grandfather Hypertension Maternal Grandmother Hyperte nsion - (Added by TW Conv) Allergic rhinitis Mother Hypertension Mother Hypertension - (Added by TW Conv) Cerebral aneurysm Mother's Brother Family history of cerebral aneurysm - (Added by TW Conv) Cerebral aneurysm Mother's Sister Family history of cerebral aneurysm - (Added by TW Conv) Migraines Other 1 Migraine Headac he - (Added by Conv) Parkinsonism Other 2 Parkinson's Dis ease - (Added by Conv) Cancer Other 3 Cancer - (Added by TW Conv) Coronary artery disease Other 4 Pau nary Artery Disease - (Added by TW Conv) Stroke Other 5 Stroke Syndrome - (Added by TW Conv) Cardiomyopathy Paternal Grandmother Neuropathy Paternal Grandmother Family history of neuropathy - (Added by TW Conv) Diabetes type II Sister 1 Relation Name Status Comments Brother Alive Father Alive Father's Brother Other Valve surge ry Maternal Grandfather Maternal Grandmother Mother Alive Mother's Brother Mother's Sister Other 1 Other 2 Other 3 Other 4 Other 5 Paternal Grandfather Paternal Grandmother Alive Sister 1 Alive Sister 2 Alive Social History Tobacco Use Types Packs/Day Years Used Date Smoking Tobacco: Never Smokeless Tobacco: Never Tobacco Cessation:Counseling Given: Not Answered Personal Safety Answer Date Recorded Have you ever been in or are you currently in a harmful physical or emotional relationship or is someone making you feel afraid or unsafe? 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 Gender Identity Not on file Sexual Orientation Not on file Obstetrics History Last Filed Vital Signs Vital Sign Reading Time Taken Comments Blood Pressure 152/101 09/08/2024 2:34 PM CDT Pulse 60 09/08/2024 2:34 PM CDT Temperature 37.5 C (99.5 F) 09/08/2024 2:34 PM CDT Respiratory Rate 18 08/27/2023 1:18 PM CDT Oxygen Saturation 97% 09/08/2024 2:34 PM CDT Inhaled Oxygen Concentration - - Weight 106.3 kg (234 lb 6.4 oz) 09/08/2024 2:34 PM CDT Height 167.6 cm (5' 6) 09/08/2024 2:34 PM CDT Body Mass Index 37.83 09/08/2024 2:34 PM CDT Plan of Treatment Health Maintenance Due Date Last Done Comments Breast Cancer Screening-Mammogram 1981 Cervical Cancer Screening 1981 Depression Screening 1981 Hepatitis C Screening 1981 DTaP/Tdap/Td Vaccine (1 - Tdap) 1992 Varicella Vaccines (1 of 2 - 13+ 2-dose series) 1994 Hepatitis B Screening 09/15/1999 Regular Well Visit/Exam 18-64 09/15/1999 HPV Vaccines (1 - 3-dose SCD M series) 2008 Covid-19 Vaccine (3 - 2024-2 6 season) 2024 06/20/2020, 05/23/2020 Influenza Vaccine (#1) 2024 12/27/2019 Pneumococcal vaccine <65 Aged Out No longer eligible based on patient's age to complete this topic Procedures Procedure Name Priority Date/Time Associated Diagnosis Comments SCAN - LABS 08/25/2024 from Last 3 Months Results * SCAN - LABS (08/25/2024) us Provider Scanning Final Result from Last 3 Months Insurance [facility] [employer] [place] Advance Directives For more information, please contact: [phone] * Full Code (Latest Code Status on File) Date Activated Date Inactivated Comments 07/30/2023 9:56 AM 07/30/2023 4:22 PM Care Teams Hand Roller Engraver Relationship Specialty Start Date End Date Tania Carroll DO [address] [place] [address] [address] [place] [address] PCP - General Family Medicine 03/17/23
--- OUTSIDE RECORDS SUMMARY | 2024-10-19 15:32 | XMS_ITS | Encounter Summary ---
Author Organization [facility] Address [address] [place] [address] Phone Care Team Providers Care Foxpro Developer Name Role Phone Tania Carroll DO Primary Care Provider +1- [phone] Encounter Details Date Type Department Care Team (Late st Contact Info) Description 11/17/2023 Orders Only [facility] Scanning, Provider [...] on file Legal Sex Female 3:38 AM CORN PICKER Gender Identity Not on file Sexual Orientation Not on file documented as of this encounter Plan of Treatment Not on file documented as of this encounter Procedures Procedure Name Priority Date/Time Associated Diagnosis Comments SCAN - RADIOLOGY/IMAGING 11/17/2023 documented in this encounter Results * SCAN - RADIOLOGY/IMAGING (11/17/2023) Anatomical Region Laterality Modality Other us Provider Scanning Edited Result - Final documented in this encounter Visit Diagnoses Not on filedocumented in this encounter Care Teams Foxpro Developer Relationship Specialty Start Date End Date Tania Carroll DO [address] [place] [address] PCP - General Family Medicine 03/17/23 documented as of this encounter
[2024-10-19 18:48] LABS: Negative Monotest Control Negative (Negative); Positive Monotest Control Positive (Positive)
[2024-10-19 18:54] LABS: Influenza A QL RT-PCR Positive (Negative); Influenza B QL RT-PCR Negative (Negative); SARS-CoV-2 RNA PCR Negative (Negative)
== END 2024-10-19 15:30 | disposition home or self-care (01) ==
LOC: ANHGOSHLAB 15:29
PROVIDERS: PCP Family Medicine; Visit Provider Family Medicine
DX: R50.9 Fever, unspecified (principal); R69 Illness, unspecified; R05.9 Cough, unspecified; R53.83 Other fatigue
CPT/HCPCS: 36415; 86308; 87636

== ENCOUNTER 2024-11-24 16:05 | Outpatient (CLI) | payer BC, SELFPAY ==
--- NOTE | ~2024-11-24 | MM_ITS ---
EXAMINATION: screening [facility] BI w stella INDICATION: Asymptomatic, referred for screening mammogram COMPARISON: 11/11/2022 TECHNIQUE: Digital Breast Tomosynthesis CC, MLO views of Both breasts were obtained with computer-aided detection to assist in interpretation of the study. FINDINGS: There are scattered areas of fibroglandular density. There is a mass in the superior central right breast at middle third. Elsewhere, there are no mammographic features of malignancy. IMPRESSION: 1. Right breast Mass. 2. No evidence of malignancy in the Left breast. RECOMMENDATION: Right breast Diagnostic mammogram with true lateral, appropriate spot compression views and an ultrasound if needed. BI-RADS Category 0: Incomplete: Needs additional imaging evaluation. Reviewed, dictated and finalized at location B. IMPRESSION: 1. Right breast Mass. 2. No evidence of malignancy in the Left breast. RECOMMENDATION: Right breast Diagnostic mammogram with true lateral, appropriate spot compressi on views and an ultrasound if needed. BI-RADS Category 0: Incomplete: Needs additional imaging evaluation.
== END 2024-11-24 16:06 | disposition home or self-care (01) ==
LOC: MICIMG 16:05
PROVIDERS: PCP Family Medicine; Visit Provider Family Medicine
DX: Z12.31 Encounter for screening mammogram for malignant neoplasm of breast (principal); I10 Essential (primary) hypertension; R73.03 Prediabetes; E03.9 Hypothyroidism, unspecified; Z68.37 Body mass index [BMI] 37.0-37.9, adult; E66.01 Morbid (severe) obesity due to excess calories; Z79.899 Other long term (current) drug therapy
CPT/HCPCS: 77063; 77067

== ENCOUNTER 2024-12-18 15:35 | Emergency (ER) | payer BC, SELFPAY ==
--- OUTSIDE RECORDS SUMMARY | 2008-12-12 05:45 | XMS_ITS | Continuity of Care Document ---
Author Organization [facility] Address [address] [place] [address] [facility] [address] [place] [address] Phone Care Team Providers Care Gas Meter Reader Name Role Phone Anjum Lam Unavailable Unavailable Procedures Procedure Date Office/outpatient Visit, [facility] Advance Directives Directive Yes / No Effective Date File Name No Information Encounters Encounter Description Practice Location Reason(s) For Visit Diagnoses Date Provider Providers Copied on Encounter Office/outpat ient Visit, [facility], [address] [place] [address] [address], [place], [place], [id number], [place] tel:[phone] SEC [facility] No Information 6-200 9 Kimmili Anjum. [address] [facility] [address], [place], [address], [place]. tel:[phone] Family History Family Member Type Diagnosis Age At Onset No Information Payers Payer name Insurance type Covered libertarian ID Authoriza tion(s) No Information Social History [...]
--- NOTE | 2024-12-18 15:39 | ED_ITS ---
HPI - General Adult General Chief complaint: Dental/Oral Stated complaint: Sinus Infection Time Seen by Provider: 12/18/24 15:39 Source: patient Mode of arrival: ambulatory Limitations: no limitations History of Present Illness HPI narrative: 44-year-old female patient presents to [facility] with complaints of right- sided dental pain that started last night. Patient states that she has noticed that her right side of the cheek has been swollen and states it is very painful to open her mouth away. Patient states the pain does radiate to the right side of the jaw. Denies fevers body aches or chills. Patient states that she has had a root canal to the right upper side about a year ago. Related Data Home Medications ?Medication ?Instructions ?Recorded ?Confirmed ?Last Taken ?Type hydroxychloroquine 200 mg tablet mg PO 12/18/24 Unkno wn History Allergies Allergy/AdvReac Type Severity Reaction Status Date / Time RENZO Inhibitors Allergy Severe unknown Verified 12/18/24 15:49 allantoin (From Orajel) Allergy Severe Rash Verified 12/18/24 15:49 benzalkonium chloride (From Allergy Severe Rash Verified 12/18/24 15:49 Orajel) benzocaine (From Orajel) Allergy Severe Rash Verified 12/18/24 15:49 carbamide peroxide (From Allergy Severe Rash Verified 12/18/24 15:49 Orajel) Influenza Virus Vaccines Allergy Severe Other Verified 12/18/24 15:49 zinc chloride (From Orajel) Allergy Severe Rash Verified 12/18/24 15:49 azithromycin Allergy Mild unknown Verified 12/18/24 15:49 losartan Allergy Mild Unknown Verified 12/18/24 15:49 Penicillins Allergy Mild Rash Verified 12/18/24 15:49 povidone Allergy Mild gi upset Verified 12/18/24 15:49 tetracycline Allergy Mild Rash Verified 12/18/24 15:49 adhesive tape Allergy Unknown unknown Verified 12/18/24 15:49 ciprofloxacin Allergy Unknown unknown Verified 12/18/24 15:49 guaifenesin Allergy swelling Verified 12/18/24 15:49 and difficulty breathing cefamandole (From Mandol) AdvReac Severe Unknown Verified 12/18/24 15:49 clonidine AdvReac Severe Unknown Verified 12/18/24 15:49 lisinopril AdvReac Severe Unknown Verified 12/18/24 15:49 metoprolol (From Toprol XL) AdvReac Severe unknown Verified 12/18/24 15:49 nebivolol (From Bystolic) AdvReac Severe Unknown Verified 12/18/24 15:49 NSAIDS (Non-Steroidal AdvReac Severe Unknown Verified 12/18/24 15:49 Anti-Inflamma olmesartan (From Benicar) AdvReac Severe Unknown Verified 12/18/24 15:49 povidone-iodine AdvReac Severe Unknown Verified 12/18/24 15:49 pseudoephedrine (From AdvReac Severe Unknown Verified 12/18/24 15:49 Sudafed) sunflower oil AdvReac Severe Other Verified 12/18/24 15:49 triamterene AdvReac Severe Unknown Verified 12/18/24 15:49 mannitol AdvReac Mild gi upset Verified 12/18/24 15:49 sodium lauryl sulfate AdvReac Mild gi bleeding Verified 12/18/24 15:49 flu vaccine Allergy Intermediate Itching Uncoded 10/19/24 14:58 ERYTHROMYCINS Allergy Mild unknown Uncoded 10/19/24 14:58 CEFAZOLIN SODIUM Allergy Unknown unknown Uncoded 10/19/24 14:58 CIPROFLOXACIN HCL Allergy Unknown unknown Uncoded 10/19/24 14:58 SKIN CLEANSER COMBINATION Allergy Unknown unknown Uncoded 10/19/24 14:58 NO.4 ONDANSETRON HCL AdvReac Unknown unknown Uncoded 10/19/24 14:58 Review of Systems Review of Systems: CONSTITUTIONAL: Denies fever, chills, or sweats. EYES: Denies visual changes, redness, or discharge. ENT: Denies rhinorrhea, congestion, sore throat, or otalgia. CARDIOVASCULAR: Denies chest pain, palpitations, or edema. RESPIRATORY: Denies cough or dyspnea. GASTROINTESTINAL: Denies abdominal pain, nausea, vomiting, or diarrhea. GENITOURINARY: Denies dysuria or hematuria. SKIN: Denies rash or itching. MUSCULOSKELETAL: Denies back pain, joint pain, or myalgia. NEUROLOGIC: Denies headache, numbness, or weakness. PSYCHIATRIC: Denies anxiety or depression. [facility] Past Medical History Medical History RSV (acute bronchiolitis due to respiratory syncytial virus) Arthritis Hypothyroidism Diarrhea Abdominal pain Nausea HTN (hypertension) Coughing Asthma SOB (shortness of breath) Vision abnormalities Abdominal migraine Light headedness Vertigo Mass of right ankle Synovial cyst of ankle and foot region Coccyodynia Ankle joint clicking Pounding noise in ear Asthma Hypothyroidism (acquired) Crohn's disease, unspecified, without complications Essential (primary) hypertension Obesity, unspecified Other termite control technician (current) drug therapy Premenstrual dysphoric disorder Regional enteritis of unspecified site Family History Family History Father Diabetes mellitus Hypertension Mother Hypertension Other Family history of cardiovascular disease Social History Social History Smoking status: Never smoker Alcohol intake: never Substance use: never Substance use type: does not use Lack of Transportation: No Lack of Food: Never True Current Housing: I Have Housing Concerned About Future Housing: No Difficulty Paying Gas/Electric Bills: No Difficulty Paying for Meds: No Currently Unemployed: No Education: Master's Degree or Higher Difficulty w/ Childcare or Family Care: No Comments At the time of my signature I agree with nursing past medical history, surgical, social, and family history. There is no relevant family history pertinent to the presenting complaint. Exam Narrative: GENERAL: Well-appearing, well-nourished, and in no acute distress. HEAD: Normocephalic, atraumatic. EYES: PERRLA and EOMI. ENT: Nares clear, no rhinorrhea or epistaxis. Mucous membranes moist. Patient has of redness and swelling noted to the gum above the right upper canine. There is also what appears to be tenderness and possible abscess to the right cheek area. No open wound no drainage noted at this time. NECK: Supple. No lymphadenopathy CHEST: Clear to auscultation. No respiratory distress. HEART: Regular rate and rhythm. No murmur heard. Normal peripheral pulses. ABDOMEN: Soft, nontender, nondistended, normal active bowel sounds. EXTREMITIES: Normal range of motion. No edema. SKIN: Warm, dry, no rash. NEURO: No focal deficits. Alert and oriented x3. Course Course Level of Care: Express Care Visit Vital Signs Vital signs: Vital Signs Temperature 36.7 C 12/18/24 15:43 Pulse Rate 66 12/18/24 15:43 Respiratory Rate 18 12/18/24 15:43 Blood Pressure 140/92 H 12/18/24 15:43 Pulse Oximetry 99 12/18/24 15:43 Oxygen Delivery Room Air 12/18/24 15:43 Temperature 36.7 C 12/18/24 15:43 Pulse Rate 66 12/18/24 15:43 Respiratory Rate 18 12/18/24 15:43 Blood Pressure 140/92 H 12/18/24 15:43 Pulse Oximetry 99 12/18/24 15:43 Oxygen Delivery Room Air 12/18/24 15:43 Vital signs reviewed. The patient has been informed that they may have pre- hypertension or Hypertension based on a BP reading in the department. I recommend that the patient call the primary care provider listed on their discharge instructions or a physician of their choice this week to arrange foll ow up for further evaluation of possible pre-hypertension or Hypertension Medical Decision Making MDM Narrative Medical decision making narrative: Discussed with patient that she most likely has some type of dental abscess we will discharge her home with an oral antibiotic for infection. Patient states she does have an appointment with her dentist Friday. Discussed with patient that she feels her symptoms are getting worse despite oral antibiotic she will need to be seen in the emergency department because we will no longer have any oral options for her and she may need IV antibiotics. Patient verbalized understanding denies any other questions or concerns at this time. Differential Diagnosis Differential Diagnosis: differential diagnosis: Allergic rhinitis, chronic sinusitis, tonsillitis, acute sinusitis, infectious mononucleosis, seasonal influenza, pertussis, diphtheria, meningococcal disease, viral syndrome, viral bronchitis, RSV, COVID- 19 Vital Signs Vital Signs: Vital Signs Temperature 36.7 C 12/18/24 15:43 Pulse Rate 66 12/18/24 15:43 Respiratory Rate 18 12/18/24 15:43 Blood Pressure 140/92 H 12/18/24 15:43 Pulse Oximetry 99 12/18/24 15:43 Oxygen Delivery Room Air 12/18/24 15:43 Temperature 36.7 C 12/18/24 15:43 Pulse Rate 66 12/18/24 15:43 Respiratory Rate 18 12/18/24 15:43 Blood Pressure 140/92 H 12/18/24 15:43 Pulse Oximetry 99 12/18/24 15:43 Oxygen Delivery Room Air 12/18/24 15:43 Critical Care Time Critical Care Time Critical Care Time: No Discharge Plan Discharge Clinical Impression: Dental abscess Patient Disposition: Home Condition: Stable Instructions: Antibiotic Form, Dental Abscess (ED) Additional Instructions: Antibiotic as directed Avoid temperature extremes May apply heat or ice to the face Gentle brushing and flossing Alternate Tylenol and ibuprofen as needed for pain Follow-up with the dentist as soon as possible--see the list provided Patient Language: Swazi Prescriptions: New clindamycin HCl [Cleocin HCl] 300 mg capsule 300 mg PO Q8H 7 Days Qty: 21 0RF clindamycin HCl [Cleocin HCl] 150 mg capsule 150 mg PO Q8H 7 Days Qty: 21 0RF No Action hydroxychloroquine 200 mg tablet PO albuterol sulfate [Ventolin HFA] 90 mcg/actuation HFA aerosol inhaler 2 inh inhalation Q4H PRN (Reason: shortness of breath or wheezing) Qty: 8.5 0RF amlodipine 2.5 mg tablet 2.5 mg PO BID Qty: 60 0RF Rx Instructions: Zydus brand only labetalol 100 mg tablet 100 mg PO TID Qty: 270 3RF Rx Instructions: SANDOZ BRAND ONLY! Follow-up/Referrals: Tania Carroll DO [Primary Care Provider, Family Practice] Stand Alone Forms: Work/School Release IP Time of Disposition: 16:11
--- OUTSIDE RECORDS SUMMARY | 2024-12-18 15:39 | XMS_ITS | Encounter Summary ---
Author Organization [facility] Address [address] [place] [address] Phone Care Team Providers Care Fusion Analyst Name Role Phone Marizol Castelan MD Primary Care Provider [phone] Tej Woodson Primary Care Provider + Tania Carroll DO Primary Care Provider [phone]- [phone] Encounter Details Date Type Department Care Team (Late st Contact Info) Description 05/11/2021 Orders Only [facility] Scanning, Provider Social History Tobacco Use Types Packs/Day Years Used Date Smoking Tobacco: Never Smokeless Tobacco: Never Comments Unknown Sex and Gender Information Value Date Recorded Sex Assigned at Not on file 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
--- OUTSIDE RECORDS SUMMARY | 2024-12-18 15:39 | XMS_ITS | Encounter Summary ---
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
--- OUTSIDE RECORDS SUMMARY | 2024-12-18 15:39 | XMS_ITS | Encounter Summary ---
Author Organization [facility] Address [address] [place] [address] Phone Care Team Providers Care Chemic Mangler Name Role Phone Tej Woodson Primary Care Provider + Tania Carroll DO Primary Care Provider [phone]- [phone] Encounter Details Date Type Department Care Team (Late st Contact Info) Description 03/14/2023 Orders Only [facility] Scanning, Provider Social History Tobacco Use Types Packs/Day Years Used Date Smoking Tobacco: Never Smokeless Tobacco: Never Personal Safety Answer Date Recorded Getting School Help Needed Not on file 02/05 Comments Unknown Sex and Gender Information Value Date Recorded Sex Assigned at Not on file 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
--- OUTSIDE RECORDS SUMMARY | 2024-12-18 15:39 | XMS_ITS | Encounter Summary ---
Author Organization [facility] Address [address] [place] [address] Phone Care Team Providers Care Notary Public Name Role Phone Tej Woodson Primary Care Provider + Tania Carroll DO Primary Care Provider [phone]- [phone] Encounter Details Date Type Department Care Team (Late st Contact Info) Description 12/17/2022 Orders Only [facility] Scanning, Provider Social History Tobacco Use Types Packs/Day Years Used Date Smoking Tobacco: Never Smokeless Tobacco: Never Comments Unknown Sex and Gender Information Value Date Recorded Sex Assigned at Not on file 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
--- OUTSIDE RECORDS SUMMARY | 2024-12-18 15:39 | XMS_ITS | Encounter Summary ---
Author Organization [facility] Address [address] [facility] [address] Phone Care Team Providers Care Cosmetic Sales Assistant Name Role Phone Marizol Castelan MD Primary Care Provider Tej Woodson Primary Care Provider + Tania Carroll DO Primary Care Provider [phone]- [phone] Encounter Details Date Type Department Care Team (Late st Contact Info) Description 02/20/2021 Orders Only [facility] Scanning, Provider Social History Tobacco Use Types Packs/Day Years Used Date Smoking Tobacco: Never Smokeless Tobacco: Never Comments Unknown Sex and Gender Information Value Date Recorded Sex Assigned at Not on file 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
--- OUTSIDE RECORDS SUMMARY | 2024-12-18 15:39 | XMS_ITS | Encounter Summary ---
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
--- OUTSIDE RECORDS SUMMARY | 2024-12-18 15:39 | XMS_ITS | Encounter Summary ---
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
--- OUTSIDE RECORDS SUMMARY | 2024-12-18 15:39 | XMS_ITS | Clinical Summary ---
Author Organization [facility] Healthcare Address [address] [place] [address] Care Team Providers Care Zipper Setter Lockstitch Name Role Phone Tania Carroll DO Primary Care Provider [phone]- [phone] Allergies Active Allergy Reactions Criticality Noted Date [...] 02/22/2008 Medications predniSONE (DELTASONE) 50 mg tablet 3 Active albuterol HFA (PROVENTIL HFA,VENTOLIN HFA,PROAIR HFA) 90 mcg/actuation inhaler 2 puffs 4 Active amLODIPine (NORVASC) 2.5 mg tabletIndications :Essential hypertension TAKE TWO (2) TABS BY MOUTH EVERY MORNING AND 1 TAB BY MOUTH IN THE PM. ZYDUS BRAND 90 tablet 5 5 Active labetaloL (NORMODYNE,TRANDA TE) 100 mg tabletIndications :Essential hypertension TAKE 1 TABLET BY MOUTH THREE TIMES A DAY 90 tablet 3 5 Active Active Problems Problem Noted Date Diagnosed Date [...] Encounters Date Type Department Care Team Description 12/03/2024 2:23 PM CDT - 12/03/2024 11:59 PM CDT Hospital Encounter [facility] [address] [facility] [address] [place] [address] Breast lump in female Discharge Disposition: Discharge to home or self care 11/29/2024 Orders Only [facility] [address] [place] [address] ProviderPedro MD 11/24/2024 - 11/24/2024 11:59 PM CDT Hospital Encounter [facility] [address] [place] [id number] Discharge Disposition: Discharge to home or self care from Last 3 Months Surgical History Surgery [...] Cancer Other 3 Cancer - (Added by Conv) Coronary artery disease Other 4 Pau nary Artery Disease - (Added by TW Conv) Stroke Other 5 Stroke Syndrome - (Added by TW Conv) Cardiomyopathy Paternal Grandmother Neuropathy Paternal Grandmother Family history of neuropathy - (Added by Conv) Diabetes type II Sister 1 Relation [...] on file Legal 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 Gender Identity Not on file Sexual Orientation Not on file Obstetrics History Para Term AB IAB SAB Ectopic Multiple Livin g Live Births 0 0 0 0 0 0 0 0 0 0 0 Last Filed Vital Signs Vital Sign Reading [...] Health Maintenance Due Date Last Done Comments Cervical Cancer Screening 1981 Depression Screening 1981 Hepatitis C Screening 1981 Varicella Vaccines (1 of 2 - 13+ 2-dose series) 1994 Hepatitis B Screening 09/15/1999 Regular Well Visit/Exam 18-64 09/15/1999 Pneumococcal vaccine <65 (1 of 2 - PCV) 2000 HPV Vaccines (1 - 3-dose SCD M series) 2008 Covid-19 Vaccine (3 - 2024-2 6 season) 2024 06/20/2020, 05/23/2020 Influenza Vaccine (#1) 2024 0, 10/31/2008, 12/21/2007 Breast Cancer Screening-Mammogram 11/24/2025 025, 11/11/2022 DTaP/Tdap/Td Vaccine (9 - Td or Tdap) 07/22/2032 07/22/2022, 01/23/2011, 05/05/1995, Additional history exists Procedures Procedure Name Priority Date/Time Associated Diagnosis Comments DIAGNOSTIC MAMMOGRAM RIGHT W BRAYAN Schedule Routine, Read Routine (OP Routine) 12/03/2024 2:58 PM CDT Breast lump in female SCREENING MAMMOGRAM 2D BILATERAL Schedule Routine, Read Routine (OP Routine) 11/24/2024 8:33 AM CDT BREAST IMAGING MG SCREENING OUTSIDE REFERENCE Routine 11/24/2024 12:00 AM CDT from Last 3 Months Results * Diagnostic Mammogram Right W Brayan (12/03/2024 2:58 PM CDT) Anatomical Region Laterality Modality Breast Right Mammography 12/03/2024 7:5 3 PM CDT Impressions 12/03/2024 7:53 PM CDT The mass of interest in the right breast is stable for 2 years, benign, likely a cyst . OVERALL FINAL ASSESSMENT: BI-RADS Category 2: Benign. RECOMMENDATION: Annual screening mammography is recommended, due in November 2025. The above findings and recommendations were communicated to the patient verbally. Electronically signed by: Latasha Faustin MD Narrative 12/03/2024 7:53 PM CDT EXAMINATION: RIGHT UNILATERAL DIGITAL DIAGNOSTIC MAMMOGRAM AND DIGITAL BREAST TOMOSYNTHESIS HISTORY: 44-year-old woman presented as a callback for a mass in the upper mid right breast. No family history of breast or ovarian cancer. COMPARISON: Prior outside hospital mammograms dated 11/11/2022 and 11/24/2024 TECHNIQUE: Full field digital mammographic views of the RIGHT breast were performed, including computer aided detection (CAD) and digital breast tomosynthesis (DBT). BREAST PARENCHYMAL COMPOSITION: There are scattered areas of fibroglandular density. RIGHT MAMMOGRAM FINDINGS: The 4 mm oval circumscribed low density mass in the slightly upper central mid right breast, approximately 7 cm from nipple is less conspicuous on today's exam and unchanged compared to 2022, compatible with a benign finding. No new suspicious findings are identified in the right breast. Tania Carroll DO IMG MAMMO PROCEDURES Final Result * Screening Mammogram 2D Bilateral (11/24/2024 8:33 AM CDT) Anatomical Region Laterality Modality Breast Bilateral Mammography Historical Provider MD DODGE MAMMO PROCEDURES Maribeth l Result * Breast Imaging Screening Outside Reference (11/24/2024 12:00 AM CDT) Impressions RAD_MAMMO_[facility] - 11/29/2024 8:31 AM CDT These images are for Reference purposes only and have not been reviewed by [facility]iology. There will be no report generated by a [facility] Radiologist. Narrative [facility]_MAMMO[facility] - 11/29/2024 8:31 AM CDT EXAMINATION: Images For Reference Purposes Only us Provider Transcribed Order IMG MAMMO PROCEDURES Final Result [facility]_MAMMO[facility] from Last 3 Months Insurance [place] For more information, please contact: [phone] * Full Code (Latest Code Status on File) Date Activated Date Inactivated Comments 07/30/2023 9:56 AM 07/30/2023 4:22 PM Care Teams Zipper Setter Lockstitch Relationship Specialty Start Date End Date Tania Carroll DO PCP - General Family Medicine 03/17/23
[2024-12-18 15:43] VITALS: BP 140/92; PULSE 66; RESP 18; TEMP 36.7; O2SAT 99
== END 2024-12-18 16:14 | disposition home or self-care (01) ==
PROVIDERS: Emergency Provider Nurse Practitioner Family; PCP Family Medicine
DX: K04.7 Periapical abscess without sinus (principal); I10 Essential (primary) hypertension; E03.9 Hypothyroidism, unspecified; M19.90 Unspecified osteoarthritis, unspecified site; J45.909 Unspecified asthma, uncomplicated; K50.90 Crohn's disease, unspecified, without complications; E66.9 Obesity, unspecified; Z68.37 Body mass index [BMI] 37.0-37.9, adult
CPT/HCPCS: 99213; G0463

== ENCOUNTER 2024-12-24 17:41 | Emergency (ER) | payer BC, SELFPAY ==
--- OUTSIDE RECORDS SUMMARY | 2008-12-12 04:45 | XMS_ITS | Continuity of Care Document ---
Author Organization [facility] Address [address] [place] [address] [facility] [address] [place] [address] Phone Care Team Providers Care Route Driver Name Role Phone Anjum Lam Unavailable Unavailable Procedures Procedure Date Office/outpatient Visit, [facility] Advance Directives Directive Yes / No Effective Date File Name No Information Encounters Encounter Description Practice Location Reason(s) For Visit Diagnoses Date Provider Providers Copied on Encounter Office/outpat ient Visit, [facility], [id number] [place] [address] [address], [place], [place], [id number], [place] tel:[phone] [facility] No Information 6-200 9 Kimmili Anjum. [address] [facility] [address], [place], [address], [place]. tel:[phone] Family History Family Member Type Diagnosis Age At Onset No Information Payers Payer name Insurance type Covered alliance party ID Authoriza tion(s) No Information Social History Type Description Quantity Date Captured Comments Sex Female Smoking Status No Information Chief Complaint And Reason For Visit No Information Reason For Referral Reason For Referral No Information History Of Present Illness Encounter Date Complaint History Of Prese nt Illness No Information Functional Status Date Functional Assessmen t No Information Instructions Date Instruction Additional Infor mation No Information Assessments Type Assessment Date No Information Patient Care Teams Name Effective Dates (start - stop) Status Members No Information
--- OUTSIDE RECORDS SUMMARY | 2024-12-24 17:44 | XMS_ITS | Encounter Summary ---
Author Organization 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
--- OUTSIDE RECORDS SUMMARY | 2024-12-24 17:44 | XMS_ITS | Encounter Summary ---
Author Organization [facility] Address [address] [place] [address] Phone Care Team Providers Care Computerized Mill Mill Recorder Name Role Phone Marizol Castelan MD Primary Care Provider [phone] Tej Woodson Primary Care Provider + Tania Carroll DO Primary Care Provider [phone]- [phone] Encounter Details Date Type Department Care Team (Late st Contact Info) Description 02/20/2021 Orders Only [facility] Scanning, Provider Social History Tobacco Use Types Packs/Day Years Used Date Smoking Tobacco: Never Smokeless Tobacco: Never Comments Unknown Sex and Gender Information Value Date Recorded Sex Assigned at Not on file Legal Sex Female 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
--- OUTSIDE RECORDS SUMMARY | 2024-12-24 17:44 | XMS_ITS | Encounter Summary ---
Author Organization [facility] Address [address] [place] [address] Phone Care Team Providers Care Patient Safety Attendant Name Role Phone Marizol Castelan MD Primary Care Provider [phone] Tej Woodson Primary Care Provider + Tania Carroll DO Primary Care Provider [phone]- [phone] Encounter Details Date Type Department Care Team (Late st Contact Info) Description 05/11/2021 Orders Only [facility] Scanning, Provider Social History Tobacco Use Types Packs/Day Years Used Date Smoking Tobacco: Never Smokeless Tobacco: Never Comments Unknown Sex and Gender Information Value Date Recorded Sex Assigned at Not on file 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
--- OUTSIDE RECORDS SUMMARY | 2024-12-24 17:44 | XMS_ITS | Encounter Summary ---
Author Organization [facility] Address [address] [place] [address] Phone Care Team Providers Care Creative Director Name Role Phone Tania Carroll DO Primary Care Provider [phone]- [phone] Encounter Details Date Type Department Care Team [...] on file Legal Sex Female 3:38 AM PRESS SET UP Gender Identity Not on file Sexual Orientation [...] on filedocumented in this encounter Care Teams Creative Director Relationship Specialty Start Date End Date Tania Carroll DO PCP - General Family Medicine 03/17/23 documented as of this encounter
--- OUTSIDE RECORDS SUMMARY | 2024-12-24 17:44 | XMS_ITS | Encounter Summary ---
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
--- OUTSIDE RECORDS SUMMARY | 2024-12-24 17:44 | XMS_ITS | Encounter Summary ---
Author Organization [facility] Address [address] [place] [address] Phone Care Team Providers Care Control Board Operator Name Role Phone Marizol Castelan MD Primary Care Provider [phone] Tej Woodson Primary Care Provider + Tania Carroll DO Primary Care Provider [phone]- [phone] Encounter Details Date Type Department Care Team (Late st Contact Info) Description 05/29/2021 Orders Only [facility] Scanning, Provider Social History Tobacco Use Types Packs/Day Years Used Date Smoking Tobacco: Never Smokeless Tobacco: Never Comments Unknown Sex and Gender Information Value Date Recorded Sex Assigned at Not on file Legal Sex Female 3:38 AM DIRECTOR TRANSLATIONAL Gender Identity Not on file Sexual Orientation [...] on filedocumented in this encounter Care Teams Control Board Operator Relationship Specialty Start Date End Date Marizol Castelan MD [address] [place] [address] PCP - General 12/11/16 09/09/22 Tej Woodson PA [address] [place] [address] PCP - General Physician Interface Developer 09/10/22 03/16/23 Tania Carroll DO [address] [place] [address] PCP - General Family Medicine 03/17/23 documented as of this encounter
--- OUTSIDE RECORDS SUMMARY | 2024-12-24 17:44 | XMS_ITS | Encounter Summary ---
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 COMBINATION WORKER Gender Identity Not on file Sexual Orientation Not on file documented as of this encounter Functional Status * BP Location Answer Date of Assessment Author Right arm 03/17/2023 3:19 PM COMBINATION WORKER Dolly Larsen MA * BP Location Answer Date of Assessment Author Right arm 03/17/2023 3:19 PM COMBINATION WORKER Dolly Larsen MA documented as of this encounter Plan of [...] on filedocumented in this encounter Care Teams Rec Therapist Relationship Specialty Start Date End Date Tej Woodson PA [address] [place], [place] [id number] PCP - General Physician Vp Patient 09/10/22 03/16/23 Tania Carroll DO [address] [place] [address] PCP - General Family Medicine 03/17/23 documented as of this encounter
--- OUTSIDE RECORDS SUMMARY | 2024-12-24 17:45 | XMS_ITS | Clinical Summary ---
Author Organization [facility] Healthcare Address [address] [place] [address] Care Team Providers Care Farm Loan Representative Name Role Phone Tania Carroll DO Primary Care Provider [phone] Allergies Active Allergy Reactions Criticality Noted Date Comments Kunal Inhibitors Unknown Low 05/29/2011 Adhesive Rash Medium 12/19/2024 Clear bandage tape Adhesive Tape-Silicones Unknown Low 02/22/2008 Ampicillin Unknown Low 02/22/2008 Cefazolin Unknown Medium 10/02/2011 Benzocaine Rash Medium 02/21/2023 Tachycardia Ciprofloxacin Unknown Medium 05/29/2011 Clindamycin Rash Medium 12/20/2024 Erythromycin Unknown Medium 02/22/2008 Guaifenesin Unknown Medium 06/29/2014 Influenza Virus Vaccines Other (See comments) Low 07/30/2023 Redness, swelling, itching, burning Losartan Angioedema High 02/21/2023 Mannitol Vomiting Low 12/19/2024 GI BLEED Minocycline Unknown Medium 02/22/2008 Nonoxynol-9 Unknown Medium 10/02/2011 Penicillins Unknown Medium 10/02/2011 Povidone-Iodine Other (See comments) Low 07/30/2023 This is not the topical iodine. Pt reports it is an inactive ingredient in some medications and has been involved in causing GI bleed. Azithromycin Unknown Medium 02/22/2008 Medications albuterol HFA (PROVENTIL HFA,VENTOLIN HFA,PROAIR HFA) 90 mcg/actuation inhaler Inhale 2 puffs every 4 (four) hours as needed for wheezing or shortness of breath 03/05/19 24 Active amLODIPine (NORVASC) 2.5 mg tablet Take 1 tablet (2.5 mg total) by mouth 2 (two) times a day ZYDUS BRAND Active labetaloL (NORMODYNE,TRAND ATE) 100 mg tablet Take 1 tablet (100 mg total) by mouth 2 (two) times a day Active clindamycin (CLEOCIN) 150 mg capsuleIndicatio ns:Skin/Soft Tissue Infection Take 2 capsules (300 mg total) by mouth 4 (four) times a day for 5 days 40 capsule 12/22/19 25 025 Active diphenhydrAMINE (BENADRYL) 25 mg capsule Take 1 tablet/capsul e (25 mg total) by mouth every 4 (four) hours as needed for allergies or itching 30 capsule 12/22/19 25 Active predniSONE (DELTASONE) 50 mg tablet 08/23/19 23 025 Discontinued amLODIPine (NORVASC) 2.5 mg tabletIndication s:Essential hypertension TAKE TWO (2) TABS BY MOUTH EVERY MORNING AND 1 TAB BY MOUTH IN THE PM. ZYDUS BRAND 90 tablet 5 06/26/19 25 025 Discontinued labetaloL (NORMODYNE,TRAND ATE) 100 mg tabletIndication s:Essential hypertension TAKE 1 TABLET BY MOUTH THREE TIMES A DAY 90 tablet 3 11/10/19 25 025 Discontinued clindamycin (CLEOCIN) 150 mg capsule Take by mouth 3 (three) times a day 025 Discontinued Active Problems Problem Noted Date Diagnosed Date Facial cellulitis 12/20/2024 Allergy to influenza vaccine 07/02/2023 Restless leg syndrome 03/26/2023 Migraine 03/26/2023 Rectal bleeding 02/21/2023 Abdominal pain 02/21/2023 Orthostatic dizziness 11/26/2021 Acquired hypothyroidism 11/19/2021 Sinus tachycardia 04/17/2021 ADHIKARI (dyspnea on exertion) 04/17/2021 Palpitations 04/17/2021 History of COVID-19 04/17/2021 Medication intolerance 04/17/2021 Essential hypertension 11/05/2017 Assessment & Plan (11/05/2017 2:07 PM CDT): Blood pressure is under good control. Will continue on current medical regimen except will take evening dose of labetalol little bit early since she has a slight evening rise in the blood pressure. Continue to watch sodium intake and stay active. Resolved Problems Problem Noted Date Diagnosed Date Resolved Date POTS (postural orthostatic t achycardia syndrome) 04/17/2021 12/20/2024 Encounters Date Type Department Care Team Description 12/22/2024 3:30 PM BID ANALYST Office Visit [facility] Immunology [address] [place] [address] Faith Boyer NP Adverse effect of drug, initial encounter (Primary Dx); Adverse effect of drug, subsequent encounter 12/22/2024 Telephone [facility] Immunology [address] [place] [address] Macey Brownlee RN 12/19/2024 9:12 PM BID ANALYST - 12/21/2024 12:14 PM BID ANALYST Hospital Encounter [facility] [address] [place] [address] Jomar Hadley DO Yew, Seow Voon, MD Gill, Behzad Saeed, MD Facial cellulitis (Primary Dx); Toothache Discharge Disposition: Discharge to home or self care 12/03/2024 2:23 PM CDT - 12/03/2024 11:59 PM CDT Hospital Encounter [facility] [address] [place] [address] Breast lump in female Discharge Disposition: Discharge to home or self care 11/29/2024 Orders Only [facility] [address] [place] [id number] Pedro Izaguirre MD 11/24/2024 - 11/24/2024 11:59 PM CDT Hospital Encounter [facility] [address] [place] [id number] Discharge Disposition: Discharge to home or self care from Last 3 Months Immunizations Immunization Administration Dates Next Due DTaP 05/05/1995, 7,07/26/1983,05/18,01/25/1982,1981 IPV 08/05/1986, 4,05/18/1982,01/25,1981 Influenza, Quadrivalent, Rec ombinant, Egg Free, Preservative Free, Intramuscular 12/27/2019 Influenza, Trivalent, IM (MDV) 10/31/2008,2007 MMR 09/07/1991,01/21/1983 Td, Not Adsorbed 05/05/1995 Tdap 07/22/2022,01/23/2011 Surgical History Surgery Date Site/Laterality Comments NO PAST SURGERIES Medical History Medical History Date Comments Hypertension Asthma Arrhythmia Diverticulosis GERD (gastroesophageal reflux disease) Histoplasmosis Colitis Family History Medical History Relation Name Comments Diabetes type II Brother Diabetes Father Diabetes Mellit - (Added by TW Conv) Diabetes type II Father Hypertension Father [...] 1 Migraine Headac he - (Added by TW Conv) Parkinsonism Other 2 Parkinson's Dis ease - (Added by TW Conv) Cancer Other 3 Cancer - (Added [...] Tobacco: Never Tobacco Cessation:Counseling Given: Not Answered Social Connection and Isolation Panel Answer Date Recorded In a typical week, how many times do you talk on the phone with family, friends, or neighbors? More than three times a week 12/20/2024 How often do you get togethe r with friends or relatives? More than three times a week 12/20/2024 How often do you attend chur ch or rastafarian services? Never 12/20/2024 Do you belong to any clubs o r organizations such as hinduism groups, unions, fraternal or athletic groups, or school groups? Yes 12/20/2024 How often do you attend meet ings of the clubs or organizations you belong to? More than 4 times per year 12/20/2024 Are you , , di vorced, , never , or living with a partner? 12/20/2024 Overall Financial Resource Strain (CARDIA) Answe r Date Recorded How hard is it for you to pa y for the very basics like food, housing, medical care, and heating? Not very hard 12/20/2024 Hunger Vital Sign Answer Date Recorded Within the past 12 months, y ou worried that your food would run out before you got the money to buy more. Never true 12/21/19 25 Within the past 12 months, t he food you bought just didn't last and you didn't have money to get more. Never true 12/20/2024 PRAPARE - Transportation Answer Date Re corded In the past 12 months, has l ack of transportation kept you from medical appointments or from getting medications? No 04/2024 In the past 12 months, has l ack of transportation kept you from meetings, work, or from getting things needed for daily living? No 12/20/2024 Housing Stability Vital Sign Answer Kayden e Recorded In the last 12 months, was t here a time when you were not able to pay the mortgage or rent on time? No 12/20/2024 In the past 12 months, how m any times have you moved where you were living? 0 12/20/2024 At any time in the past 12 m [facility], were you homeless or living in a nursing home (including now)? No 12/20/2024 [facility] Utilities Answer Date Recorded In the past 12 months has th e electric, gas, oil, or water company threatened to shut off services in your home? No 12/20/2024 Personal Safety Answer Date Recorded Have you ever been in or are you currently in a harmful physical or emotional relationship or is someone making you feel afraid or unsafe? Denies 12/20/2024 Comments No Sex and Gender Information Value Date Recorded Sex Assigned at Not on file Legal Sex Female 3:38 AM BID ANALYST Gender Identity Not on file Sexual Orientation Not on file Obstetrics History Para Term AB IAB SAB Ectopic Multiple Livin g Live Births 0 0 0 0 0 0 0 0 0 0 0 Last Filed Vital Signs Vital Sign Reading Time Taken Comments Blood Pressure 138/82 12/22/2024 3:28 PM BID ANALYST Pulse 64 12/22/2024 3:28 PM BID ANALYST Temperature 37 C (98.6 F) 12/22/2024 3:28 PM BID ANALYST Respiratory Rate 16 12/21/2024 12:1 5 PM BID ANALYST Oxygen Saturation 99% 12/22/2024 3:28 PM BID ANALYST Inhaled Oxygen Concentration - - Weight 100.8 kg (222 lb 3.2 oz) 12/22/2024 3:28 PM BID ANALYST Height 165.1 cm (5' 5) 12/20/2024 4:20 AM BID ANALYST Body Mass Index 36.98 12/20/2024 4:20 AM BID ANALYST Plan of Treatment Health Maintenance Due Date [...] Cancer Screening-Mammogram 11/24/2025 025, 11/11/2022 DTaP/Tdap/Td Vaccine (10 - T d or Tdap) 07/22/2032 07/22/2022, 01/23/2011, 05/05/1995, Additional history exists Procedures Procedure Name Priority Date/Time Associated Diagnosis Comments DIFFERENTIAL AUTO Routine 12/21/2024 5:0 7 AM BID ANALYST CBC WITH AUTO DIFFERENTIAL Routine 12/21/2024 5:[address] FACIAL BONES W CONTRAST ED 12/20/2024 12:43 AM BID ANALYST EGFR STAT 12/19/2024 9:29 PM BID ANALYST DIFFERENTIAL AUTO STAT 12/19/2024 9:2 9 PM BID ANALYST COMPREHENSIVE METABOLIC PANEL STAT 12/19/2024 9:29 PM BID ANALYST CBC WITH AUTO DIFFERENTIAL STAT 12/19/2024 9:29 PM BID ANALYST DIAGNOSTIC MAMMOGRAM RIGHT W BRAYAN Schedule Routine, Read Routine (OP Routine) 12/03/2024 2:58 PM CDT Breast lump in female SCREENING MAMMOGRAM 2D BILATERAL Schedule Routine, Read Routine (OP Routine) 11/24/2024 8:33 AM CDT BREAST IMAGING MG SCREENING OUTSIDE REFERENCE Routine 11/24/2024 12:00 AM CDT from Last 3 Months Results * (ABNORMAL) Differential, auto (12/21/2024 5:07 AM BID ANALYST) Neutrophil abs 5.27 1.50 - 6.50 K/cumm Imm gran abs 0.03 0.00 - 0.10 K/cumm [facility] Lymphocyte abs 2.61 0.80 - 3.30 K/cumm [facility] Monocyte abs 0.85(H) 0.20 - 0.80 K/cumm [facility] Eosinophil abs 0.17 0.00 - 0.50 K/cumm [facility] Basophil abs 0.06 0.00 - 0.10 K/cumm [facility] Neutrophil pct 58.6 % [facility] Comment: Interpretive Data Percent cell count reference ranges are not reported, since discordance with absolute values may lead to misinterpretation of CBC data. Current Interpretive Data was last revised on 2017. Imm gran pct 0.3 % [facility] Comment: Interpretive Data Percent cell count reference ranges are not reported, since discordance with absolute values may lead to misinterpretation of CBC data. Current Interpretive Data was last revised on 2017. Lymphocyte pct 29.0 % [facility] Comment: Interpretive Data Percent cell count reference ranges are not reported, since discordance with absolute values may lead to misinterpretation of CBC data. Current Interpretive Data was last revised on 2017. Monocyte pct 9.5 % [facility] Comment: Interpretive Data Percent cell count reference ranges are not reported, since discordance with absolute values may lead to misinterpretation of CBC data. Current Interpretive Data was last revised on 2017. Eosinophil pct 1.9 % [facility] Comment: Interpretive Data Percent cell count reference ranges are not reported, since discordance with absolute values may lead to misinterpretation of CBC data. Current Interpretive Data was last revised on 2017. Basophil pct 0.7 % [facility] Comment: Interpretive Data Percent cell count reference ranges are not reported, since discordance with absolute values may lead to misinterpretation of CBC data. Current Interpretive Data was last revised on 2017. Blood 12/21/2024 5:07 AM BID ANALYST 12/21/2024 6:51 AM BID ANALYST us Nolan Correa MD LAB BLOOD ORDERABLES Final Resu lt [facility] [address] [place] [address] * (ABNORMAL) CBC with auto differential (12/21/2024 5:07 AM BID ANALYST) WBC 8.99 3.80 - 9.90 K/cumm Hgb 13.3 11.9 - 15.5 g/dL [facility] Hct 42.3 35.6 - 45.5 % [facility] Plt 324 150 - 400 K/cumm [facility] MPV 11.1 9.1 - 12.3 fL [facility] RBC 4.70 3.90 - 5.20 M/cumm [facility] MCV 90.0 81.3 - 96.4 fL [facility] MCH 28.3 27.1 - 33.3 pg [facility] MCHC 31.4(L) 32.3 - 35.7 g/dL [facility] RDW CV 12.9 11.1 - 14.9 % [facility] RDW SD 42.8 35.7 - 48.1 fL [facility] NRBC abs 0.00 0.00 - 0.01 K/cumm [facility] Blood 12/21/2024 5:07 AM BID ANALYST 12/21/2024 6:51 AM BID ANALYST us Nolan Correa MD LAB BLOOD ORDERABLES Final Resu lt [facility] [address] Department [place] [address] * CT Facial Bones W Contrast (12/20/2024 12:43 AM BID ANALYST) Anatomical Region Laterality Modality Head and Neck N/A Computed Tomogra phy 12/20/2024 12:3 8 AM BID ANALYST Impressions 12/20/2024 8:57 AM BID ANALYST Right face cellulitis likely secondary to the right maxilla 1st molar periapical cyst with erosion in the right maxillary sinus floor as well as the buccal and lingual cortical breakthrough. No facial abscess. Odontogenic sinusitis involving right maxillary sinus and the ethmoid sinus. Electronically signed by: Ernesto Raines MD, PHD Narrative 12/20/2024 8:57 AM BID ANALYST EXAMINATION: CT of the maxillofacial bones, orbits, and paranasal sinuses with contrast HISTORY: Right upper dental abscess with facial cellulitis TECHNIQUE: Computed tomography of the maxillofacial bones, orbits, and paranasal sinuses was performed with intravenous contrast according to the standard protocol. Contrast information: 69 mL Optiray-350 IV COMPARISON: None Available. FINDINGS: There is diffuse stranding and the swelling of the right face buccal space. There is periapical cyst along the right maxilla 1st molar which protruding into right maxillary sinus and has erosion of bony wall of wall. There are also cortical breakthrough and posterior lingual and buccal side along the right maxillary 1st molar. There are no rim-enhancing collection to suggest abscess. There is complete opacification of what station into infundibulum and anterior ethmoid sinus. The orbits are normal. The frontal, and sphenoid sinuses are normal. The maxillary sinuses are normal The mandible is normal. The remaining maxillofacial bones are unremarkable. The mastoid air cells are normal. There is no acute fracture. There is no abnormal contrast enhancement. There is also periodontal disease on the left molar tooth. Procedure Note Ernesto Raines MD PhD - 12/20/2024 EXAMINATION: CT of the maxillofacial bones, orbits, and paranasal sinuses with contrast HISTORY: Right upper dental abscess with facial cellulitis TECHNIQUE: Computed tomography of the maxillofacial bones, orbits, and paranasal sinuses was performed with intravenous contrast according to the standard protocol. Contrast information: 69 mL Optiray-350 IV COMPARISON: None Available. FINDINGS: There is diffuse stranding and the swelling of the right face buccal space. There is periapical cyst along the right maxilla 1st molar which protruding into right maxillary sinus and has erosion of bony wall of wall. There are also cortical breakthrough and posterior lingual and buccal side along the right maxillary 1st molar. There are no rim-enhancing collection to suggest abscess. There is complete opacification of what station into infundibulum and anterior ethmoid sinus. The orbits are normal. The frontal, and sphenoid sinuses are normal. The maxillary sinuses are normal The mandible is normal. The remaining maxillofacial bones are unremarkable. The mastoid air cells are normal. There is no acute fracture. There is no abnormal contrast enhancement. There is also periodontal disease on the left molar tooth. IMPRESSION: Right face cellulitis likely secondary to the right maxilla 1st molar periapical cyst with erosion in the right maxillary sinus floor as well as the buccal and lingual cortical breakthrough. No facial abscess. Odontogenic sinusitis involving right maxillary sinus and the ethmoid sinus. Electronically signed by: Ernesto Raines MD, PHD us Jessica Rosales [employer] LOCATION MANAGER IMG CT PROCEDURES Final Resul t * eGFR (12/19/2024 9:29 PM BID ANALYST) eGFR 79 >=60 mL/min/1. 73 m2 Comment: Interpretive Data Reference Interval Normal >/= 90 mL/min/1.73m2 Mildly decreased* 60 - 89 mL/min/1.73m2 Mildly to moderately decreased 45 - 59 mL/min/1.73m2 Moderately to severely decreased 30 - 44 mL/min/1.73m2 Severely decreased 15 - 29 mL/min/1.73m2 Kidney Failure < 15 mL/min/1.73m2 *Relative to young adult level Estimated glomerular filtration rate is determined by the 2020 CKD-EPI equation recommended by the National Kidney Foundation (A Unifying Approach to GFR Estimation: Recommendations of the NKF-ASK Task Force on Reassessing the Inclusion of Race in Diagnosing Kidney Disease, JASN 2020). The CKD-EPI equation should not be used for patients with unstable renal function and has not been validated in children and those over 70. Current interpretive data was last reviewed 2020. Blood 12/19/2024 9:29 PM BID ANALYST 12/19/2024 9:35 PM BID ANALYST Jomar Hadley DO LAB BLOOD ORDERABLES Final Resu lt [facility] [address] Department of Laboratories [place], [place] [id number] * (ABNORMAL) Differential, auto (12/19/2024 9:29 PM BID ANALYST) Neutrophil abs 8.78(H) 1.50 - 6.50 K/cumm Imm gran abs 0.05 0.00 - 0.10 K/cumm [facility] Lymphocyte abs 2.37 0.80 - 3.30 K/cumm [facility] Monocyte abs 1.01(H) 0.20 - 0.80 K/cumm [facility] Eosinophil abs 0.04 0.00 - 0.50 K/cumm [facility] Basophil abs 0.05 0.00 - 0.10 K/cumm [facility] Neutrophil pct 71.4 % [facility] Comment: Interpretive Data Percent cell count reference ranges are not reported, since discordance with absolute values may lead to misinterpretation of CBC data. Current Interpretive Data was last revised on 2017. Imm gran pct 0.4 % [facility] Comment: Interpretive Data Percent cell count reference ranges are not reported, since discordance with absolute values may lead to misinterpretation of CBC data. Current Interpretive Data was last revised on 2017. Lymphocyte pct 19.3 % [facility] Comment: Interpretive Data Percent cell count reference ranges are not reported, since discordance with absolute values may lead to misinterpretation of CBC data. Current Interpretive Data was last revised on 2017. Monocyte pct 8.2 % [facility] Comment: Interpretive Data Percent cell count reference ranges are not reported, since discordance with absolute values may lead to misinterpretation of CBC data. Current Interpretive Data was last revised on 2017. Eosinophil pct 0.3 % [facility] Comment: Interpretive Data Percent cell count reference ranges are not reported, since discordance with absolute values may lead to misinterpretation of CBC data. Current Interpretive Data was last revised on 2017. Basophil pct 0.4 % [facility] Comment: Interpretive Data Percent cell count reference ranges are not reported, since discordance with absolute values may lead to misinterpretation of CBC data. Current Interpretive Data was last revised on 2017. Blood 12/19/2024 9:29 PM BID ANALYST 12/19/2024 9:35 PM BID ANALYST us Jomar Hadley DO LAB BLOOD ORDERABLES Final Resu lt [facility] [address] Department of Laboratories [place], [place] [id number] * (ABNORMAL) CBC with auto differential (12/19/2024 9:29 PM BID ANALYST) WBC 12.30(H) 3.80 - 9.90 K/cumm Hgb 14.8 11.9 - 15.5 g/dL [facility] Hct 45.0 35.6 - 45.5 % [facility] Plt 378 150 - 400 K/cumm [facility] MPV 10.6 9.1 - 12.3 fL [facility] RBC 5.14 3.90 - 5.20 M/cumm [facility] MCV 87.5 81.3 - 96.4 fL [facility] MCH 28.8 27.1 - 33.3 pg [facility] MCHC 32.9 32.3 - 35.7 g/dL [facility] RDW CV 12.9 11.1 - 14.9 % [facility] RDW SD 41.1 35.7 - 48.1 fL [facility] NRBC abs 0.00 0.00 - 0.01 K/cumm [facility] Blood 12/19/2024 9:29 PM BID ANALYST 12/19/2024 9:35 PM BID ANALYST Jomar Hadley DO LAB BLOOD ORDERABLES Final Resu lt [facility] [address] Department [place] [address] * Comprehensive metabolic panel (12/19/2024 9:29 PM BID ANALYST) Sodium 136 135 - 145 mmol/L Potassium, pl 3.7 3.3 - 4.9 mmol/L [facility] Chloride 97 97 - 110 mmol/L [facility] CO2 25 22 - 32 mmol/L [facility] Anion gap 14 2 - 15 mmol/L [facility] BUN 14 6 - 25 mg/dL [facility] Creatinine 0.92 0.60 - 1.10 mg/dL [facility] Glucose 115 70 - 199 mg/dL [facility] Comment: Interpretive Data Fasting glucose >/= 126 mg/dl is diagnostic for diabetes. Fasting is defined as no caloric intake for at least 8 hours. Fasting glucose between 100 mg/dl to 125 mg/dl is diagnostic of prediabetes. In a patient with classic symptoms of hyperglycemia or hyperglycemic crisis, a random glucose >/= 200 mg/dl is diagnostic for diabetes. In the absence of unequivocal hyperglycemia, results should be confirmed by repeat testing. The classification and Diagnosis of Diabetes Diabetes Care 2021; 46: S19-S40. Current interpretive data was last revised 2022. Calcium 9.7 8.5 - 10.3 mg/dL [facility] Bilirubin, total 0.7 0.1 - 1.2 mg/dL [facility] Protein, pl 8.3 6.5 - 8.5 g/dL [facility] Albumin 4.3 3.5 - 5.0 g/dL [facility] Alk phos 99 40 - 130 Units/L [facility] ALT 20 7 - 45 Units/L [facility] AST 19 10 - 45 Units/L [facility] Blood 12/19/2024 9:29 PM BID ANALYST 12/19/2024 9:35 PM BID ANALYST Jomar [facility] LAB BLOOD ORDERABLES Final Resu lt [facility] [address] Department [place] [address] * Diagnostic Mammogram Right W Brayan (12/03/2024 2:58 PM CDT) Anatomical Region Laterality Modality Breast Right Mammography 12/03/2024 7:53 PM CDT Impressions 12/03/2024 7:53 PM CDT [...] Laterality Modality Breast Bilateral Mammography Historical Provider IMG MAMMO PROCEDURES Maribeth l Result * Breast Imaging Screening Outside Reference (11/24/2024 12:00 AM CDT) Impressions [facility] - 11/29/2024 8:31 AM CDT These images are for Reference purposes only and have not been reviewed by [facility]. There will be no report generated by a [facility]iologist. Narrative [facility] - 11/29/2024 8:31 AM CDT EXAMINATION: Images For Reference Purposes Only Provider Transcribed Order IMG MAMMO PROCEDURES Final Result [facility] from Last 3 Months Insurance [facility] [employer] [place] Advance Directives For more information, please contact: [phone] * Full Code (Latest Code Status on File) Date Activated Date Inactivated Comments 12/20/2024 4:32 AM 12/21/2024 4:34 PM * Full Code Date Activated Date Inactivated Comments 07/30/2023 9:56 AM 07/30/2023 4:22 PM Care Teams Farm Loan Representative Relationship Specialty Start Date End Date Tania Carroll DO PCP - General Family Medicine 03/17/23
--- OUTSIDE RECORDS SUMMARY | 2024-12-24 17:45 | XMS_ITS | Encounter Summary ---
Author Organization [facility] Address [address] [place] [address] Phone Care Team Providers Care Backhaul Driver Name Role Phone Tej Woodson Primary Care Provider + Tania Carroll DO Primary Care Provider [phone] Encounter Details Date Type Department Care Team (Late st Contact Info) Description 12/17/2022 Orders Only [facility] Scanning, Provider Social History Tobacco Use Types Packs/Day Years Used Date Smoking Tobacco: Never Smokeless Tobacco: Never Comments Unknown Sex and Gender Information Value Date Recorded Sex Assigned at Not on file 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
--- NOTE | 2024-12-24 18:26 | ED_ITS ---
HPI - General Adult General Chief complaint: Skin/Abscess/Foreign Body Stated complaint: dental Source: patient Mode of arrival: ambulatory Limitations: no limitations History of Present Illness HPI narrative: this is a 48-year-old female patient with complex allergy history that presents with reports that she still has dental infection and needs a different antibiotic. Patient was seen on 12/18/2024 at [place] [facility] due to the dental pain. Full work up was completed even CT scan. patient as diagnosed with dental abcess and prescribed antibiotic, however patient is noted allergic to all oral antibiotic groups. ER discussed with patient that if she felt her symptoms were getting worse despite oral antibiotic she will need to be seen in the emergency department because we will no longer have any oral options for her and she may need IV antibiotics. Patient verbalized understanding at that time. Patient was seen at her dentist's office on Friday however on the she was seen at [facility] ER for an allergic reaction. They gave her Benadryl, and told her to reduce the antibiotic intake Benadryl with it. Patient however continued to have hives with the clindamycin. She did follow-up with her security operations specialist, however they told her stop the antibiotic. Patient is here in hopes to get another antibiotic. Onset (ago): day(s) (7) Location: face Radiation: non-radiation Severity: moderate Pain Consistency: constant Relieving factors: none Exacerbating factors: none Associated symptoms: denies other symptoms Related Data Home Medications ?Medication ?Instructions ?Recorded ?Confirmed ?Last Taken ?Type hydroxychloroquine 200 mg tablet mg PO 12/18/24 Unkno wn History Allergies Allergy/AdvReac Type Severity Reaction Status Date / Time RENZO Inhibitors Allergy Severe unknown Verified 12/18/24 15:49 allantoin (From Orajel) Allergy Severe Rash Verified 12/18/24 15:49 benzalkonium chloride (From Allergy Severe Rash Verified 12/18/24 15:49 Orajel) benzocaine (From Orajel) Allergy Severe Rash Verified 12/18/24 15:49 carbamide peroxide (From Allergy Severe Rash Verified 12/18/24 15:49 Orajel) Influenza Virus Vaccines Allergy Severe Other Verified 12/18/24 15:49 zinc chloride (From Orajel) Allergy Severe Rash Verified 12/18/24 15:49 azithromycin Allergy Mild unknown Verified 12/18/24 15:49 losartan Allergy Mild Unknown Verified 12/18/24 15:49 Penicillins Allergy Mild Rash Verified 12/18/24 15:49 povidone Allergy Mild gi upset Verified 12/18/24 15:49 tetracycline Allergy Mild Rash Verified 12/18/24 15:49 adhesive tape Allergy Unknown unknown Verified 12/18/24 15:49 ciprofloxacin Allergy Unknown unknown Verified 12/18/24 15:49 guaifenesin Allergy swelling Verified 12/18/24 15:49 and difficulty breathing cefamandole (From Mandol) AdvReac Severe Unknown Verified 12/18/24 15:49 clonidine AdvReac Severe Unknown Verified 12/18/24 15:49 lisinopril AdvReac Severe Unknown Verified 12/18/24 15:49 metoprolol (From Toprol XL) AdvReac Severe unknown Verified 12/18/24 15:49 nebivolol (From Bystolic) AdvReac Severe Unknown Verified 12/18/24 15:49 NSAIDS (Non-Steroidal AdvReac Severe Unknown Verified 12/18/24 15:49 Anti-Inflamma olmesartan (From Benicar) AdvReac Severe Unknown Verified 12/18/24 15:49 povidone-iodine AdvReac Severe Unknown Verified 12/18/24 15:49 pseudoephedrine (From AdvReac Severe Unknown Verified 12/18/24 15:49 Sudafed) sunflower oil AdvReac Severe Other Verified 12/18/24 15:49 triamterene AdvReac Severe Unknown Verified 12/18/24 15:49 mannitol AdvReac Mild gi upset Verified 12/18/24 15:49 sodium lauryl sulfate AdvReac Mild gi bleeding Verified 12/18/24 15:49 flu vaccine Allergy Intermediate Itching Uncoded 10/19/24 14:58 ERYTHROMYCINS Allergy Mild unknown Uncoded 10/19/24 14:58 CEFAZOLIN SODIUM Allergy Unknown unknown Uncoded 10/19/24 14:58 CIPROFLOXACIN HCL Allergy Unknown unknown Uncoded 10/19/24 14:58 SKIN CLEANSER COMBINATION Allergy Unknown unknown Uncoded 10/19/24 14:58 NO.4 ONDANSETRON HCL AdvReac Unknown unknown Uncoded 10/19/24 14:58 Review of Systems Review of Systems: All systems reviewed & are unremarkable except as noted in HPI and below PMFSH Past Medical History Medical History RSV (acute bronchiolitis due to respiratory syncytial virus) Arthritis Hypothyroidism Diarrhea Abdominal pain Nausea HTN (hypertension) Coughing Asthma SOB (shortness of breath) Vision abnormalities Abdominal migraine Light headedness Vertigo Mass of right ankle Synovial cyst of ankle and foot region Coccyodynia Ankle joint clicking Pounding noise in ear Asthma Hypothyroidism (acquired) Crohn's disease, unspecified, without complications Essential (primary) hypertension Obesity, unspecified Other shelter (current) drug therapy Premenstrual dysphoric disorder Regional enteritis of unspecified site Family History Family History Father Diabetes mellitus Hypertension Mother Hypertension Other Family history of cardiovascular disease Social History Social History Alcohol intake: never Substance use: never Substance use type: does not use Lack of Transportation: No Lack of Food: Never True Current Housing: I Have Housing Concerned About Future Housing: No Difficulty Paying Gas/Electric Bills: No Difficulty Paying for Meds: No Currently Unemployed: No Education: Master's Degree or Higher Difficulty w/ Childcare or Family Care: No Exam Const: General: healthy appearing Nutritional Appearance: well nourished Orientation/consciousness: patient oriented x3 Limitations: no limitations HENMT: Head: normal to inspection Ears: external ears normal Face/Nose/Sinus: Normal external nose present Face and sinus: normal facial exam Mouth: Yes Normal oral and palatal mucosa present Teeth and gingiva: abnormal tooth and associated gingiva Throat: posterior oropharynx normal Eyes: Conjunctivae: conjunctivae normal Pupils: Equal, round and reactive pupils present EOM: EOMs intact bilaterally Neck: Neck: normal visual inspection Resp: Effort & Inspection: normal respiratory effort Cardio: Rate: regular rate Rhythm: regular rhythm GI: Inspection: distended GI Palp: Yes Soft to palpation Auscultation: normal bowel sounds : General: Yes bladder normal to palpation Back/Spine/Pelvis: Back: no CVA tenderness Skin: General skin exam: normal color Rashes: no rashes Wounds: no wounds Neuro: General: patient oriented x3 Speech: normal speech Gait exam (Neuro): Normal gait present Extrem: General: normal to inspection Psych: Mental Status: mental status grossly normal Affect: normal affect Attitude: cooperative Course Course Emergency Course: this is a 48-year-old female patient with complex allergy history that presents with reports that she still has dental infection and needs a different antibiotic. Patient was seen on 12/18/2024 at [place] [facility] due to the dental pain. Full work up was completed even CT scan. patient as diagnosed with dental abcess and prescribed antibiotic, however patient is noted allergic to all oral antibiotic groups. ER discussed with patient that if she felt her symptoms were getting worse despite oral antibiotic she will need to be seen in the emergency department because we will no longer have any oral options for her and she may need IV antibiotics. Patient verbalized understanding at that time. Patient was seen at her dentist's office on Friday however on the she was seen at [facility] ER for an allergic reaction. They gave her Benadryl, and told her to reduce the antibiotic intake Benadryl with it. Patient however continued to have hives with the clindamycin. She did follow-up with her security operations specialist, however they told her stop the antibiotic. Patient is here in hopes to get another antibiotic. After evaluation of patient's allergy list, and her symptoms with all antibiotic groups, this provider instructed the patient that she is not comfortable giving an oral antibiotic due to her history of hives, severe nausea vomiting and severe anaphylactic reactions to antibiotics groups. Instructed that safely she will need to be transferred to a larger facility. Initially patient wanted to go to [facility], spoke with Dr Bari Wang, he does not accept the patient due to the limitations of hospital specialty. They do not actively have Infectious Disease, they do not have immunology, he suggest patient go to [facility] or a larger hospital. Patient initially wanted to go all [facility] however they do not have infectious disease. Patient also does not want transfer immediately did discuss with patient leaving the urgent care would be a transfer, she needed to go directly there, she does not feel that she wants to go directly there she would need sign out against medical advice at this point. My advice would be for her to get to hospital the can treat her appropriately for her infectious process to reduce risk of sepsis and or worsening condition. patient states she was comfortable going to [facility], spoke to [facility] transfer line, was directed to the emergency department, spoke to charge nurse Lela Nguyen, report was given, patient was placed on the board, expected arrival. Comfortable POV. Did not give me and expecting accepting doctor's name to accept the patient. patient is comfortable with transfer. Information given to the patient for transfer. She verbalizes understanding to go directly to the emergency department do not delay. Discussed risks and benefits she verbalizes understanding. Patient was transferred to [facility] Emergency Department Level of Care: Express Care Visit Transfer Transfered to: [facility] Transportation: Other (POV) Transfer rationale: refused EMS Accepting physician: Charge nurse Lela Nguyen refused to give accepting MD name Medical Decision Making MDM Narrative Medical decision making narrative: this is a 48-year-old female patient with complex allergy history that presents with reports that she still has dental infection and needs a different antibiotic. Patient was seen on 12/18/2024 at [place] [facility] due to the dental haley n. Full work up was completed even CT scan. patient as diagnosed with dental abcess and prescribed antibiotic, however patient is noted allergic to all oral antibiotic groups. ER discussed with patient that if she felt her symptoms were getting worse despite oral antibiotic she will need to be seen in the emergency department because we will no longer have any oral options for her and she may need IV antibiotics. Patient verbalized understanding at that time. Patient was seen at her dentist's office on Friday however on the she was seen at [facility] ER for an allergic reaction. They gave her Benadryl, and told her to reduce the antibiotic intake Benadryl with it. Patient however continued to have hives with the clindamycin. She did follow-up with her security operations specialist, however they told her stop the antibiotic. Patient is here in hopes to get another antibiotic. After evaluation of patient's allergy list, and her symptoms with all antibiotic groups, this provider instructed the patient that she is not comfortable giving an oral antibiotic due to her history of hives, severe nausea vomiting and severe anaphylactic reactions to antibiotics groups. Instructed that safely she will need to be transferred to a larger facility. Initially patient wanted to go to [facility], spoke with Dr Bari Wang, he does not accept the patient due to the limitations of hospital specialty. They do not actively have Infectious Disease, they do not have immunology, he suggest patient go to [facility] or a larger hospital. Patient initially wanted to go all [facility] however they do not have infectious disease. Patient also does not want transfer immediately did discuss with patient leaving the urgent care would be a transfer, she needed to go directly there, she does not feel that she wants to go directly there she would need sign out against medical advice at this point. My advice would be for her to get to hospital the can treat her appropriately for her infectious process to reduce risk of sepsis and or worsening condition. patient states she was comfortable going to [facility], spoke to [facility] transfer line, was directed to the emergency department, spoke to charge nurse Lela Nguyen, report was given, patient was placed on the board, expected arrival. Comfortable POV. Did not give me and expecting accepting doctor's name to accept the patient. patient is comfortable with transfer. Information given to the patient for transfer. She verbalizes understanding to go directly to the emergency department do not delay. Discussed risks and benefits she verbalizes understanding. Patient was transferred to [facility] Emergency Department Medical Records Medical records reviewed: Yes I reviewed the external patient's medical records. Discharge Plan Discharge Clinical Impression: Abscess, dental Patient Disposition: Acute Care Hospital Condition: Stable Additional Instructions: transferred to [facility] Emergency [facility] instructed to go directly to the ER do not delay transfer Patient Language: Khmer Prescriptions: No Action hydroxychloroquine 200 mg tablet PO clindamycin HCl [Cleocin HCl] 300 mg capsule 300 mg PO Q8H 7 Days Qty: 21 0RF clindamycin HCl [Cleocin HCl] 150 mg capsule 150 mg PO Q8H 7 Days Qty: 21 0RF albuterol sulfate [Ventolin HFA] 90 mcg/actuation HFA aerosol inhaler 2 inh inhalation Q4H PRN (Reason: shortness of breath or wheezing) Qty: 8.5 0RF amlodipine 2.5 mg tablet 2.5 mg PO BID Qty: 60 0RF Rx Instructions: Zydus brand only labetalol 100 mg tablet 100 mg PO TID Qty: 270 3RF Rx Instructions: SANDOZ BRAND ONLY! Follow-up/Referrals: Tania Carroll DO [Primary Care Provider, [facility]] Time of Disposition: 18:54
== END 2024-12-24 18:47 | disposition short-term general hospital (02) ==
PROVIDERS: Emergency Provider Nurse Practitioner Family; PCP Family Medicine
DX: K04.7 Periapical abscess without sinus (principal); I10 Essential (primary) hypertension; E03.9 Hypothyroidism, unspecified; J45.909 Unspecified asthma, uncomplicated; K50.90 Crohn's disease, unspecified, without complications; M19.90 Unspecified osteoarthritis, unspecified site; E66.9 Obesity, unspecified
CPT/HCPCS: 99212; G0463